=== PATIENT | male | born 1990 | race American Indian/Alaskan Native ===

== ENCOUNTER 2018-02-22 23:32 | Emergency (ER) | payer SELFPAY ==
[2018-02-23 00:56] LABS: Basophils % (Auto) 0.6 % (0.0-1.8); Eosinophils # (Auto) 0.3 K/mm3 (0.0-0.4); Hematocrit 49.7 % (35.5-45.6); Hemoglobin 16.4 gm/dl (11.8-15.2); Lymphocytes # (Auto) 2.2 K/mm3 (1.2-5.4); Lymphocytes % (Auto) 28.3 % (13.4-35.0); Mean Corpuscular HGB Conc 33 % (32-34); Mean Corpuscular Hemoglobin 30 pg (28-32); Mean Corpuscular Volume 90 fl (84-94); Monocytes # (Auto) 0.9 K/mm3 (0.0-0.8); Monocytes % (Auto) 12.1 % (0.0-7.3); Platelet Count 214 K/mm3 (140-440); Red Blood Count 5.51 M/mm3 (3.65-5.03); Red Cell Distribution Width 13.5 % (13.2-15.2)
[2018-02-23 01:17] LABS: Bilirubin,Urine NEG (Negative); Blood,Urine NEG (Negative); Color,Urine Yellow (Yellow); Mucus,Urine FEW /HPF; Protein,Urine <15 mg/dL mg/dL (Negative)
[2018-02-23 01:19] LABS: Albumin 3.9 g/dL (3.9-5); BUN/Creatinine Ratio 14; Blood Urea Nitrogen 15 mg/dL (9-20); Calcium 8.8 mg/dL (8.4-10.2); Hemolysis Index 30
[2018-02-23 01:34] LABS: Alanine Aminotransferase 1070 units/L (7-56)
[2018-02-23 05:23] LABS: Lipase 25 units/L (13-60)
[2018-02-23] MEDS ORDERED: ZOFRAN ODT PO ONE (05:30)
--- NOTE | 2018-02-23 05:36 | Emergency Department Report ---
<CAITLIN SANTOS - Last Filed: 02/23/18 06:33> ED Abdominal Pain HPI - General Chief Complaint: Abdominal Pain Stated Complaint: STOMACH PAIN.TESTICLE PAIN,BURN URINE Time Seen by Provider: 02/23/18 05:00 Source: patient Mode of arrival: Ambulatory Limitations: No Limitations - History of Present Illness Initial Comments: 27-year-old -[place] male with a past medical history of HIV reports is undetected, fatty liver with recent hospital stay at [facility] every comes in today for abdominal pain decreased appetite for the last 2 days left testicular pain with swelling. Admits to nausea and decreased appetite. He also admits to dysuria denies any penile discharge. Patient reports he is not on any antiretrovirals at this time. Patient reports is currently taking no medications he has an allergy to Dilantin, iodine containing products. Reports his pain is 6 out of 10. MD Complaint: abdominal pain -: days(s) (2) Location: diffuse Severity: moderate Severity scale (0 -10): 6 Consistency: constant Improves With: nothing Worsens With: movement - Related Data Previous Rx's Medication Instructions Recorded Last Taken Type Doxycycline [Vibramycin CAP] 100 mg PO Q12HR #30 capsule 02/23/18 Unknown Rx traMADol [Ultram] 50 mg PO Q6HR PRN #10 tablet 02/23/18 Unknown Rx Allergies Allergy/AdvReac Type Severity Reaction Status Date / Time Iodine and Iodide Containing Allergy Hives Verified 02/22/18 23:47 Produc ED Review of Systems ROS: Stated complaint: STOMACH PAIN.TESTICLE PAIN,BURN URINE Other details as noted in HPI Constitutional: denies: chills, fever Eyes: denies: eye pain, eye discharge, vision change ENT: denies: ear pain, throat pain Respiratory: denies: cough, shortness of breath, wheezing Cardiovascular: denies: chest pain, palpitations Gastrointestinal: abdominal pain Genitourinary: dysuria, testicular pain. denies: discharge Musculoskeletal: denies: back pain, joint swelling, arthralgia Skin: denies: rash, lesions Neurological: denies: headache, weakness, paresthesias Psychiatric: denies: anxiety, depression Hematological/Lymphatic: denies: easy bleeding, easy bruising ED Past Medical Hx - Past Medical History Hx Hypertension: No Hx CVA: No Hx Heart Attack/AMI: No Hx Congestive Heart Failure: No Hx Diabetes: No Hx Deep Vein Thrombosis: No Hx Pulmonary Embolism: No Hx GERD: No Hx Liver Disease: Yes (Fatty liver) Hx Renal Disease: No Hx of Cancer: No Hx Sickle Cell Disease: No Hx Arthritis: No Hx Headaches / Migraines: No Hx Seizures: No Hx Kidney Stones: No Hx Psychiatric Treatment: No Hx Asthma: Yes Hx COPD: No Hx Tuberculosis: No Hx Dementia: No Hx HIV: Yes - Surgical History Past Surgical History?: No - Social History Smoking Status: Current Every Day Smoker Substance Use Type: Alcohol - Medications Home Medications: Home Medications Medication Instructions Recorded Confirmed Last Taken Type Doxycycline [Vibramycin CAP] 100 mg PO Q12HR #30 capsule 02/23/18 Unknown Rx traMADol [Ultram] 50 mg PO Q6HR PRN #10 tablet 02/23/18 Unknown Rx ED Physical Exam - General Limitations: No Limitations General appearance: alert, in no apparent distress - Head Head exam: Present: atraumatic, normocephalic - Eye Eye exam: Present: normal appearance - ENT ENT exam: Present: mucous membranes moist - Neck Neck exam: Present: normal inspection - Respiratory Respiratory exam: Present: normal lung sounds bilaterally. Absent: respiratory distress - Cardiovascular Cardiovascular Exam: Present: regular rate, normal rhythm. Absent: systolic murmur, diastolic murmur, rubs, gallop - GI/Abdominal GI/Abdominal exam: Present: soft, normal bowel sounds - Rectal Rectal exam: Present: deferred - exam: Present: testicular tenderness, scrotal swelling, circumcision - Extremities Exam Extremities exam: Present: normal inspection - Back Exam Back exam: Present: normal inspection - Neurological Exam Neurological exam: Present: alert, oriented X3 - Psychiatric Psychiatric exam: Present: normal affect, normal mood - Skin Skin exam: Present: warm, dry, intact, normal color. Absent: rash ED Course Vital Signs 02/22/18 02/23/18 23:37 07:19 Temperature 97.9 F 98.7 F Pulse Rate 84 88 Respiratory 18 17 Rate Blood Pressure 124/79 Blood Pressure 124/79 116/74 [Right] O2 Sat by Pulse 98 99 Oximetry ED Medical Decision Making - Lab Data Result diagrams: 02/23/18 00:39 02/23/18 00:39 - Radiology Data Radiology results: report reviewed, image reviewed IMPRESSION: Left epididymitis is suggested. No findings of torsion, orchitis or abscess formation - Medical Decision Making Patient's been evaluated with his provider as well as Dr. Van. Evaluated patient's labs show that he has elevated liver enzymes. Discussed the patient we will do a CT of the abdomen pelvic and ultrasound of his testicles. Studies come back negative for testicular torsion will treat patient for epididymitis. CT scan comes back stable. We will refer patient to lining feller encourage patient to stop smoking and stop drinking alcohol. For him to follow up closely with her doctor. Critical care attestation.: If time is entered above; I have spent that time in minutes in the direct care of this critically ill patient, excluding procedure time. ED Disposition Clinical Impression: Epididymitis, left Disposition: - TO HOME OR SELFCARE Condition: Stable Instructions: Epididymitis (ED) Additional Instructions: Return any acute change or worsening. follow up with listed physicians. Prescriptions: Doxycycline [Vibramycin CAP] 100 mg PO Q12HR #30 capsule traMADol [Ultram] 50 mg PO Q6HR PRN #10 tablet PRN Reason: Pain Referrals: usual, [facility] [Other] - 3-5 Days [facility] [Provider Group] - 3-5 Days ELMER MARC MD [Primary Care Provider] - 3-5 Days Forms: STI Treatment and Prevention <BERLIN TURNER - Last Filed: 02/23/18 07:46> ED Course - Reevaluation(s) Reevaluation #1: I was asked to check CT and discharge patient if negative. Patient has very been staffed by Dr. Dong Van. CT is negative 02/23/18 07:42 ED Medical Decision Making - Lab Data Result diagrams: 02/23/18 00:39 02/23/18 00:39 ED Disposition Is pt being admited?: No Does the pt Need Aspirin: No Time of Disposition: 07:44
--- NOTE | 2018-02-23 06:27 | Ultrasound Report ---
FINAL REPORT EXAM: US TESTICULAR DOPPLER COMP HISTORY: left testicular pain with swelling COMPARISONS: None FINDINGS: Grayscale, color and spectral Doppler ultrasound evaluation of the testicles The right testicle measures 4.2 x 1.9 x 2.8 cm and demonstrates normal echotexture and color and spectral Doppler evaluation. The epididymis is within normal limits. No intra or extratesticular mass. The left testicle measures 4.4 x 2.2 x 2.6 cm and demonstrates normal echotexture and color and spectral Doppler evaluation. The left epididymis is asymmetrically larger and diffusely heterogeneous in echotexture compared to the right. Trace left hydrocele. No intra or extratesticular mass. No right or left varicocele identified. IMPRESSION: Left epididymitis is suggested. No findings of torsion, orchitis or abscess formation.
[2018-02-23] MEDS ORDERED: ROCEPHIN IM ONE (06:36)
[2018-02-23] MEDS ORDERED: XYLOCAINE 1% MPF 5 mL INFILTRATI ONE (06:36)
[2018-02-23] MEDS ORDERED: ZITHROMAX PO ONE (06:36)
[2018-02-23] MEDS ORDERED: MOTRIN PO ONE (06:37)
--- NOTE | 2018-02-23 07:24 | Cat Scan Report ---
FINAL REPORT EXAM: CT ABDOMEN PELVIS WO CON HISTORY: abd pain and elevated LFTs TECHNIQUE: CT images obtained through the Abdomen and Pelvis without contrast. Transaxial,coronal and sagittal reformats are provided. PRIORS: None. FINDINGS: Imaged intrathoracic contents are unremarkable. Kidneys are normal in size, axis and position. No hydronephrosis or nephrolithiasis. The ureters are normal in course and caliber. No stones are seen within the urinary bladder. The liver, gallbladder, pancreas, spleen, and adrenal glands demonstrate an unremarkable noncontrast appearance. Hollow enteric organs are normal in course and caliber. Appendix is normal. No intra-abdominal free air/fluid or lymphadenopathy. Aorta is normal in course and caliber. Superficial soft tissues are unremarkable. No acute or aggressive appearing skeletal findings. IMPRESSION: No acute findings in the abdomen or pelvis.
[2018-02-23 08:29] VITALS: BP 119/78
== END 2018-02-23 08:20 | disposition home or self-care (01) ==
LOC: ED 23:32
DX: N45.1 Epididymitis (principal); F17.200 Nicotine dependence, unspecified, uncomplicated; Z88.8 Allergy status to other drugs, medicaments and biological substances
CPT/HCPCS: 36415; 74176; 80053; 81001; 82150; 83690; 85025; 87086; 93975; 96372; 99284; J0696; Q0162

== ENCOUNTER 2018-03-15 00:47 | Emergency (ER) | payer SELFPAY ==
[2018-03-15] MEDS ORDERED: TYLENOL ONE (01:40)
[2018-03-15 01:44] VITALS: BP 113/59
[2018-03-15] MEDS ORDERED: TYLENOL PO ONE (01:45)
--- NOTE | 2018-03-15 02:45 | XRay Report ---
FINAL REPORT PROCEDURE: XR CHEST ROUTINE 2V TECHNIQUE: PA and lateral chest radiographs were obtained. CPT 04063 HISTORY: TRE COMPARISON: No prior studies are available for comparison. FINDINGS: Heart: Normal. Mediastinum/Vessels: Normal. Lungs/Pleural space: Normal. Bony thorax: No acute osseous abnormality. Other: IMPRESSION: Normal examination.
== END 2018-03-15 05:36 | disposition left against medical advice (07) ==
LOC: ED 00:47
DX: M54.9 Dorsalgia, unspecified (principal); Z53.21 Procedure and treatment not carried out due to patient leaving prior to being seen by health care provider
CPT/HCPCS: 71046; 93005; 93010

== ENCOUNTER 2018-07-01 15:57 | Emergency (ER) | payer SELFPAY ==
--- NOTE | 2018-07-01 20:49 | Emergency Department Report ---
ED Male HPI - General Chief complaint: Urogenital-Male Stated complaint: BURNING WHEN URINATION/TESTICLE PAIN Time Seen by Provider: 07/01/18 20:09 Source: patient Mode of arrival: Ambulatory Limitations: No Limitations - History of Present Illness Initial comments: Patient c/o Left testicular pain x 1 week. Complaint: testicle pain -: Gradual Location: left testicle Radiation: none Severity: moderate Severity scale (0 -10): 6 Quality: aching Consistency: constant Improves with: none Worsens with: none dysuria - Related Data Sexually active: Yes Previous Rx's Medication Instructions Recorded Last Taken Type Doxycycline [Vibramycin CAP] 100 mg PO Q12HR #30 capsule 02/23/18 Unknown Rx Sulfamethoxazole/Trimethoprim 1 each PO BID #30 tablet 02/23/18 Unknown Rx [Bactrim Ds Tablet] traMADol [Ultram] 50 mg PO Q6HR PRN #10 tablet 02/23/18 Unknown Rx Doxycycline Hyclate [Doxycycline 100 mg PO Q12HR #20 tab 07/01/18 Unknown Rx Hyclate TAB] Ibuprofen [Motrin] 800 mg PO Q8HR PRN #30 tablet 07/01/18 Unknown Rx Ondansetron [Zofran Odt] 4 mg PO Q8HR PRN #15 tab.rapdis 07/01/18 Unknown Rx levoFLOXacin [Levaquin] 750 mg PO QDAY #10 tablet 07/01/18 Unknown Rx Allergies Allergy/AdvReac Type Severity Reaction Status Date / Time Iodine and Iodide Containing Allergy Hives Verified 07/01/18 16:12 Produc ED Review of Systems ROS: Stated complaint: BURNING WHEN URINATION/TESTICLE PAIN Other details as noted in HPI Comment: All other systems reviewed and negative Constitutional: denies: chills, fever Eyes: denies: eye pain ENT: denies: ear pain Respiratory: denies: cough, shortness of breath Cardiovascular: denies: chest pain, palpitations Endocrine: no symptoms reported Gastrointestinal: denies: abdominal pain, nausea, vomiting, diarrhea Genitourinary: urgency, dysuria, frequency Musculoskeletal: denies: back pain Skin: denies: rash, lesions Neurological: denies: headache, weakness Psychiatric: denies: anxiety, depression Hematological/Lymphatic: denies: easy bleeding, easy bruising ED Past Medical Hx - Past Medical History Hx Hypertension: No Hx CVA: No Hx Heart Attack/AMI: No Hx Congestive Heart Failure: No Hx Diabetes: No Hx Deep Vein Thrombosis: No Hx Pulmonary Embolism: No Hx GERD: No Hx Liver Disease: Yes (Fatty liver) Hx Renal Disease: No Hx Sickle Cell Disease: No Hx Arthritis: No Hx Headaches / Migraines: No Hx Seizures: No Hx Kidney Stones: No Hx Psychiatric Treatment: No Hx Asthma: Yes Hx COPD: No Hx Tuberculosis: No Hx Dementia: No Hx HIV: Yes - Social History Smoking Status: Never Smoker Substance Use Type: None - Medications Home Medications: Home Medications Medication Instructions Recorded Confirmed Last Taken Type Doxycycline [Vibramycin CAP] 100 mg PO Q12HR #30 capsule 02/23/18 Unknown Rx Sulfamethoxazole/Trimethoprim 1 each PO BID #30 tablet 02/23/18 Unknown Rx [Bactrim Ds Tablet] traMADol [Ultram] 50 mg PO Q6HR PRN #10 tablet 02/23/18 Unknown Rx Doxycycline Hyclate [Doxycycline 100 mg PO Q12HR #20 tab 07/01/18 Unknown Rx Hyclate TAB] Ibuprofen [Motrin] 800 mg PO Q8HR PRN #30 tablet 07/01/18 Unknown Rx Ondansetron [Zofran Odt] 4 mg PO Q8HR PRN #15 tab.rapdis 07/01/18 Unknown Rx levoFLOXacin [Levaquin] 750 mg PO QDAY #10 tablet 07/01/18 Unknown Rx ED Physical Exam - General Limitations: No Limitations General appearance: alert, in no apparent distress - Head Head exam: Present: atraumatic, normocephalic, normal inspection - Eye Eye exam: Present: normal appearance, PERRL, EOMI Pupils: Present: normal accommodation - ENT ENT exam: Present: normal exam, normal orophraynx, mucous membranes moist - Neck Neck exam: Present: normal inspection, full ROM. Absent: tenderness - Respiratory Respiratory exam: Present: normal lung sounds bilaterally. Absent: respiratory distress, wheezes, rales, rhonchi, stridor - Cardiovascular Cardiovascular Exam: Present: regular rate, normal rhythm, normal heart sounds - GI/Abdominal GI/Abdominal exam: Present: soft, normal bowel sounds. Absent: distended, tenderness, guarding, rebound, rigid - Rectal Rectal exam: Present: deferred - exam: Present: normal inspection, testicular tenderness (Left testicle), circumcision, other (Charperone was Ms. Aisha RN.). Absent: urethral discharge, scrotal swelling - Extremities Exam Extremities exam: Present: normal inspection, full ROM, normal capillary refill. Absent: tenderness - Back Exam Back exam: Present: normal inspection, full ROM. Absent: tenderness - Neurological Exam Neurological exam: Present: alert, oriented X3, CN II-XII intact - Psychiatric Psychiatric exam: Present: normal affect, normal mood - Skin Skin exam: Present: warm, dry, intact, normal color. Absent: rash ED Course Vital Signs 07/01/18 07/01/18 16:12 20:17 Temperature 97.6 F Pulse Rate 92 H 74 Respiratory 18 16 Rate Blood Pressure 129/80 Blood Pressure 139/71 [Left] O2 Sat by Pulse 99 96 Oximetry ED Medical Decision Making - Lab Data Result diagrams: 07/01/18 21:09 07/01/18 21:15 - Radiology Data Radiology results: report reviewed, image reviewed - Medical Decision Making UTI. Left sided Epididymitis. Critical care attestation.: If time is entered above; I have spent that time in minutes in the direct care of this critically ill patient, excluding procedure time. ED Disposition Clinical Impression: Acute epididymo-orchitis Disposition: DC-01 TO HOME OR SELFCARE Is pt being admited?: No Does the pt Need Aspirin: No Condition: Stable Instructions: Epididymitis (ED) Additional Instructions: Follow up with your regular doctor tomorrow morning. Return to the ED if your condition worsens. Prescriptions: Doxycycline Hyclate [Doxycycline Hyclate TAB] 100 mg PO Q12HR #20 tab Ibuprofen [Motrin] 800 mg PO Q8HR PRN #30 tablet PRN Reason: Pain, Moderate (4-6) levoFLOXacin [Levaquin] 750 mg PO QDAY #10 tablet Ondansetron [Zofran Odt] 4 mg PO Q8HR PRN #15 tab.rapdis PRN Reason: Nausea And Vomiting Referrals: PRIMARY CARE,MD [Primary Care Provider] - 3-5 Days Forms: STI Treatment and Prevention Time of Disposition: 23:50
[2018-07-01] MEDS ORDERED: ROCEPHIN IM ONE (20:50)
[2018-07-01] MEDS ORDERED: XYLOCAINE 1% MPF 5 mL INFILTRATI ONE (20:50)
[2018-07-01] MEDS ORDERED: ZITHROMAX PO ONE (20:50)
--- NOTE | 2018-07-01 20:57 | Ultrasound Report ---
FINAL REPORT PROCEDURE: US TESTICULAR DOPPLER COMP TECHNIQUE: Real-time -scale and color flow Doppler sonography in multiple planes of the scrotum, testicles, and epididymes was performed. Velocity spectral waveform analysis Doppler imaging of the arterial inflow and venous outflow of the testicles was performed with image documentation. CPT 89347 and 47805 HISTORY: pain in left testicle COMPARISON: 02/23/2018 FINDINGS: RIGHT TESTICLE: Size: 3.7 x 1.7 x 2.8 cm . Doppler flow: Within normal limits. Right epididymis: Normal size and echotexture . Hydrocele: None . LEFT TESTICLE Size: 4.0 x 2.2 x 3.0 cm . Appearance: Normal size and echotexture . Doppler flow: There is slightly increased Doppler signal compared to that of right.. Leftepididymis: Normal size and echotexture . Hydrocele: None . Mild degree left varicocele is identified. IMPRESSION: Slightly increased Doppler signal on the left is suspicious for left epididymo-orchitis. Mild degree left varicocele.
[2018-07-01 21:26] LABS: Basophils # (Auto) 0.1 K/mm3 (0.0-0.1); Basophils % (Auto) 0.9 % (0.0-1.8); Eosinophils # (Auto) 0.5 K/mm3 (0.0-0.4); Eosinophils % (Auto) 4.7 % (0.0-4.3); Hematocrit 42.9 % (35.5-45.6); Hemoglobin 15.3 gm/dl (11.8-15.2); Lymphocytes # (Auto) 1.5 K/mm3 (1.2-5.4); Lymphocytes % (Auto) 14.4 % (13.4-35.0); Mean Corpuscular HGB Conc 36 % (32-34); Mean Corpuscular Hemoglobin 31 pg (28-32); Mean Corpuscular Volume 88 fl (84-94); Monocytes # (Auto) 0.6 K/mm3 (0.0-0.8); Monocytes % (Auto) 6.2 % (0.0-7.3); Platelet Count 212 K/mm3 (140-440); Red Blood Count 4.88 M/mm3 (3.65-5.03); Red Cell Distribution Width 14.8 % (13.2-15.2)
[2018-07-01 21:32] LABS: INR 0.88 (0.87-1.13)
[2018-07-01 21:33] LABS: Partial Thromboplastin Time 31.7 Sec. (24.2-36.6)
[2018-07-01 21:40] LABS: Alanine Aminotransferase 269 units/L (7-56); Albumin 4.3 g/dL (3.9-5); BUN/Creatinine Ratio 6; Blood Urea Nitrogen 9 mg/dL (9-20); Calcium 9.3 mg/dL (8.4-10.2); Hemolysis Index 25
--- NOTE | 2018-07-01 22:27 | Cat Scan Report ---
FINAL REPORT PROCEDURE: CT ABDOMEN PELVIS WO CON TECHNIQUE: Computerized axial tomography of the abdomen and pelvis was performed without intravenous contrast. This study is performed without intravascular contrast material and its sensitivity for abdominal and pelvic pathology, including neoplasms, inflammation, abscess, free fluid, thrombosis, arterial dissection and infarction, is reduced compared with a contrast enhanced study. HISTORY: Lower abdominal pain; C/O TESTICULAR PAIN. COMPARISON: 02/23/2018 FINDINGS: Liver, spleen, pancreas and adrenal glands are within normal limits. Bilateral kidneys demonstrate normal density without calculi or hydronephrosis. Aorta is of normal caliber. There is no free fluid or free air. Gallbladder is contracted. Small bowel loops are within normal limits. Moderate degree residual stool is noted. Appendix is normal. Vertebral height is normal. IMPRESSION: No acute intra-abdominal or pelvic pathology as visualized on this noncontrast study Moderate degree residual stool.
[2018-07-01 23:47] LABS: Bacteria,Urine 1+ /HPF (Negative); Bilirubin,Urine NEG (Negative); Blood,Urine SM (Negative); Calcium Oxalate Crystals,Urine 2+; Color,Urine Yellow (Yellow); Protein,Urine <15 mg/dL mg/dL (Negative); Urobilinogen,Urine < 2.0 mg/dL (<2.0); WBC,Urine < 1.0 /HPF (0.0-6.0)
[2018-07-01] MEDS ORDERED: LEVAQUIN PO ONE (23:50)
[2018-07-02 00:20] VITALS: BP 117/84
== END 2018-07-02 00:20 | disposition home or self-care (01) ==
LOC: ED 15:57
DX: N45.3 Epididymo-orchitis (principal); J45.909 Unspecified asthma, uncomplicated; K76.9 Liver disease, unspecified; Z91.041 Radiographic dye allergy status; Z91.09 Other allergy status, other than to drugs and biological substances
CPT/HCPCS: 36415; 74176; 80053; 81001; 85025; 85610; 85730; 87086; 93975; 96372; 99284; J0696

== ENCOUNTER 2018-08-25 21:38 | Emergency (ER) | payer SELFPAY ==
[2018-08-25 22:28] VITALS: BP 140/92
[2018-08-25 23:08] LABS: Basophils # (Auto) 0.1 K/mm3 (0.0-0.1); Basophils % (Auto) 0.8 % (0.0-1.8); Eosinophils # (Auto) 0.3 K/mm3 (0.0-0.4); Eosinophils % (Auto) 3.4 % (0.0-4.3); Hematocrit 46.8 % (35.5-45.6); Lymphocytes # (Auto) 1.9 K/mm3 (1.2-5.4); Lymphocytes % (Auto) 20.6 % (13.4-35.0); Mean Corpuscular HGB Conc 34 % (32-34); Mean Corpuscular Hemoglobin 31 pg (28-32); Mean Corpuscular Volume 91 fl (84-94); Monocytes # (Auto) 0.6 K/mm3 (0.0-0.8); Monocytes % (Auto) 6.9 % (0.0-7.3); Platelet Count 223 K/mm3 (140-440); Red Blood Count 5.14 M/mm3 (3.65-5.03); Red Cell Distribution Width 13.9 % (13.2-15.2)
[2018-08-25 23:19] LABS: BUN/Creatinine Ratio 10; Blood Urea Nitrogen 12 mg/dL (9-20); Calcium 9.3 mg/dL (8.4-10.2); Hemolysis Index 10
[2018-08-25 23:43] LABS: Bilirubin,Urine NEG (Negative); Blood,Urine NEG (Negative); Color,Urine Straw (Yellow); Protein,Urine <15 mg/dL mg/dL (Negative); RBC,Urine < 1.0 /HPF (0.0-6.0); Urobilinogen,Urine < 2.0 mg/dL (<2.0)
[2018-08-25 23:44] LABS: WBC,Urine < 1.0 /HPF (0.0-6.0)
[2018-08-25 23:54] LABS: Amphetamine Screen,Urine PRESUMPTIVE NEGATIVE; Benzodiazepines Screen,Urine PRESUMPTIVE NEGATIVE; Cannabinoid Screen,Urine PRESUMPTIVE NEGATIVE; Methadone Screen,Urine PRESUMPTIVE NEGATIVE; Opiate Screen,Urine PRESUMPTIVE NEGATIVE
[2018-08-26 00:28] LABS: Cocaine Screen,Urine PRESUMPTIVE POSITIVE
== END 2018-08-25 23:40 | disposition left against medical advice (07) ==
LOC: ED 21:38
DX: R42 Dizziness and giddiness (principal); R30.0 Dysuria; Z79.899 Other long term (current) drug therapy; Z53.21 Procedure and treatment not carried out due to patient leaving prior to being seen by health care provider
CPT/HCPCS: 36415; 80048; 80307; 81001; 85025; G0480; 80320; 93005; 93010

== ENCOUNTER 2019-01-24 15:09 | Emergency (ER) | payer OTHER ==
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
[2019-01-24 16:37] LABS: Hematocrit 47.2 % (35.5-45.6); Mean Corpuscular HGB Conc 34 % (32-34); Mean Corpuscular Volume 91 fl (84-94); Platelet Count 339 K/mm3 (140-440); Red Cell Distribution Width 13.6 % (13.2-15.2)
[2019-01-24 16:52] LABS: Alanine Aminotransferase 22 units/L (7-56); Albumin 4.5 g/dL (3.9-5); BUN/Creatinine Ratio 7; Blood Urea Nitrogen 8 mg/dL (9-20); Calcium 9.6 mg/dL (8.4-10.2); Hemolysis Index 14
--- NOTE | 2019-01-24 17:16 | XRay Report ---
PROCEDURE: XR CHEST ROUTINE 2V TECHNIQUE: 2 view chest HISTORY: CHEST PAIN COMPARISONS: FINDINGS: Cardiac and mediastinal contours are unremarkable. No focal pulmonary infiltrate identified. No pleur al fluid collections seen. Pulmonary vasculature is unremarkable. IMPRESSION: No acute abnormality identified in the chest. This document is electronically signed by Dre Neves MD., January 24 2019 05:13:43 PM ET
--- NOTE | 2019-01-24 20:15 | Emergency Department Report ---
ED Chest Pain HPI - General Chief Complaint: Chest Pain Stated Complaint: CHEST/NECK PAIN Time Seen by Provider: 01/24/19 15:59 Source: patient Mode of arrival: Ambulatory Limitations: No Limitations - History of Present Illness Initial Comments: This is a 28-year-old -[place] male who presents with chest pain status post questionable ingestion last night states he went to a green party and drinking and woke up feeling funny today pain is 3/10 is exacerbated by deep breathing nausea vomiting no dizziness no diaphoresis no back pain patient and have cardiac history does have a history of being HIV positive advised that here is for treatment regimen patient is tolerating by mouth intake patient denies substance a normal basis been no relieving or exacerbating factors patient is tolerating by mouth intake at this time MD Complaint: chest pain Onset/Timin -: days(s) Pain Location: left chest Pain Radiation: none Severity: mild, moderate Severity scale (0 -10): 7 Quality: aching Consistency: intermittent Improves With: rest Worsens With: inspiration, movement re: denies: nausea, vomting, diaphoresis, dyspnea, sense of impending doom Other Symptoms: denies: cough, fever, syncope, rash, acid taste in mouth, leg swelling, palpitations, burping Treatments Prior to Arrival: none - Related Data Previous Rx's Medication Instructions Recorded Last Taken Type Doxycycline [Vibramycin CAP] 100 mg PO Q12HR #30 capsule 02/23/18 Unknown Rx Sulfamethoxazole/Trimethoprim 1 each PO BID #30 tablet 02/23/18 Unknown Rx [Bactrim Ds Tablet] traMADol [Ultram] 50 mg PO Q6HR PRN #10 tablet 02/23/18 Unknown Rx Doxycycline Hyclate [Doxycycline 100 mg PO Q12HR #20 tab 07/01/18 Unknown Rx Hyclate TAB] Ibuprofen [Motrin] 800 mg PO Q8HR PRN #30 tablet 07/01/18 Unknown Rx Ondansetron [Zofran Odt] 4 mg PO Q8HR PRN #15 tab.rapdis 07/01/18 Unknown Rx levoFLOXacin [Levaquin] 750 mg PO QDAY #10 tablet 07/01/18 Unknown Rx levoFLOXacin [Levaquin TAB] 500 mg PO QDAY 7 Days #7 tablet 10/30/18 Unknown Rx predniSONE [Deltasone] 3 tab PO QDAY 4 Days #12 tab 10/30/18 Unknown Rx Ibuprofen 800 mg PO TID PRN #30 tablet 01/24/19 Unknown Rx Allergies Allergy/AdvReac Type Severity Reaction Status Date / Time Iodine and Iodide Containing Allergy Hives Verified 07/01/18 16:12 Produc Heart Score - HEART Score History: Slightly suspicious EKG: Normal Age: < 45 Risk factors: No known risk factors Troponin: < normal limit HEART Score: 0 ED Review of Systems ROS: Stated complaint: CHEST/NECK PAIN Other details as noted in HPI Constitutional: denies: chills, fever Eyes: denies: eye pain, eye discharge, vision change ENT: denies: ear pain, throat pain Respiratory: denies: cough, shortness of breath, wheezing Cardiovascular: chest pain. denies: palpitations Endocrine: no symptoms reported Gastrointestinal: denies: abdominal pain, nausea, diarrhea Genitourinary: denies: urgency, dysuria Musculoskeletal: denies: back pain, joint swelling, arthralgia, myalgia Skin: denies: rash, lesions Neurological: denies: headache, weakness, paresthesias Psychiatric: denies: anxiety, depression Hematological/Lymphatic: denies: easy bleeding, easy bruising ED Past Medical Hx - Past Medical History Hx Hypertension: No Hx CVA: No Hx Heart Attack/AMI: No Hx Congestive Heart Failure: No Hx Diabetes: No Hx Deep Vein Thrombosis: No Hx Pulmonary Embolism: No Hx GERD: No Hx Liver Disease: Yes (Fatty liver) Hx Renal Disease: No Hx Sickle Cell Disease: No Hx Arthritis: No Hx Headaches / Migraines: No Hx Seizures: No Hx Kidney Stones: No Hx Psychiatric Treatment: No Hx Asthma: Yes Hx COPD: No Hx Tuberculosis: No Hx Dementia: No Hx HIV: Yes - Surgical History Past Surgical History?: No - Social History Smoking Status: Never Smoker Substance Use Type: Marijuana - Medications Home Medications: Home Medications Medication Instructions Recorded Confirmed Last Taken Type Doxycycline [Vibramycin CAP] 100 mg PO Q12HR #30 capsule 02/23/18 Unknown Rx Sulfamethoxazole/Trimethoprim 1 each PO BID #30 tablet 02/23/18 Unknown Rx [Bactrim Ds Tablet] traMADol [Ultram] 50 mg PO Q6HR PRN #10 tablet 02/23/18 Unknown Rx Doxycycline Hyclate [Doxycycline 100 mg PO Q12HR #20 tab 07/01/18 Unknown Rx Hyclate TAB] Ibuprofen [Motrin] 800 mg PO Q8HR PRN #30 tablet 07/01/18 Unknown Rx Ondansetron [Zofran Odt] 4 mg PO Q8HR PRN #15 tab.rapdis 07/01/18 Unknown Rx levoFLOXacin [Levaquin] 750 mg PO QDAY #10 tablet 07/01/18 Unknown Rx levoFLOXacin [Levaquin TAB] 500 mg PO QDAY 7 Days #7 tablet 10/30/18 Unknown Rx predniSONE [Deltasone] 3 tab PO QDAY 4 Days #12 tab 10/30/18 Unknown Rx Ibuprofen 800 mg PO TID PRN #30 tablet 01/24/19 Unknown Rx ED Physical Exam - General Limitations: No Limitations General appearance: alert, in no apparent distress - Head Head exam: Present: atraumatic, normocephalic - Eye Eye exam: Present: normal appearance, PERRL, EOMI Pupils: Present: normal accommodation - ENT ENT exam: Present: normal orophraynx, mucous membranes moist, TM's normal bilaterally, normal external ear exam - Neck Neck exam: Present: normal inspection, tenderness, full ROM. Absent: meningismus, lymphadenopathy, thyromegaly - Respiratory Respiratory exam: Present: normal lung sounds bilaterally, chest wall tenderness (left lateral ). Absent: respiratory distress, wheezes, stridor, prolonged expiratory - Cardiovascular Cardiovascular Exam: Present: regular rate, normal rhythm, normal heart sounds. Absent: systolic murmur, diastolic murmur, rubs, gallop - GI/Abdominal GI/Abdominal exam: Present: soft, normal bowel sounds. Absent: distended, tenderness, guarding, rebound, rigid, mass, bruit, hernia - Rectal Rectal exam: Present: deferred - Extremities Exam Extremities exam: Present: normal inspection, full ROM, normal capillary refill. Absent: tenderness, pedal edema, joint swelling, calf tenderness - Back Exam Back exam: Present: normal inspection, full ROM. Absent: tenderness, CVA tenderness (R), CVA tenderness (L), muscle spasm, paraspinal tenderness, vertebral tenderness, rash noted - Neurological Exam Neurological exam: Present: alert, oriented X3, CN II-XII intact, normal gait, reflexes normal. Absent: motor sensory deficit - Psychiatric Psychiatric exam: Present: normal affect, normal mood - Skin Skin exam: Present: warm, dry, intact, normal color. Absent: rash ED Course Vital Signs 01/24/19 16:00 Temperature 98.3 F Pulse Rate 97 H Respiratory 16 Rate Blood Pressure 142/87 O2 Sat by Pulse 98 Oximetry URBAN score - Urban Score Age > 65: (0) No Aspirin use within the Past 7 Days: (0) No 3 or more CAD Risk Factors: (0) No 2 or more Angina events in past 24 hrs: (0) No Known CAD with more than 50% Stenosis: (0) No Elevated Cardiac Markers: (0) No ST Deviation Greater than 0.5mm: (0) No URBAN Score: 0 ED Medical Decision Making - Lab Data Result diagrams: 01/24/19 16:22 01/24/19 16:22 Labs 01/24/19 01/24/19 01/24/19 16:22 16:22 21:00 WBC 11.6 H RBC 5.20 H Hgb 16.0 H Hct 47.2 H MCV 91 MCH 31 MCHC 34 RDW 13.6 Plt Count 339 Sodium 137 Potassium 4.0 Chloride 97.6 L Carbon Dioxide 28 Anion Gap 15 BUN 8 L Creatinine 1.1 Estimated GFR > 60 BUN/Creatinine Ratio 7 Glucose 83 Calcium 9.6 Total Bilirubin 0.70 AST 27 ALT 22 Alkaline Phosphatase 75 Troponin T < 0.010 Total Protein 8.3 H Albumin 4.5 Albumin/Globulin Ratio 1.2 Urine Color Yellow Urine Turbidity Clear Urine pH 6.0 Ur Specific [place] 1.005 Urine Protein <15 mg/dl Urine Glucose (UA) Neg Urine Ketones Neg Urine Blood Neg Urine Nitrite Neg Urine Bilirubin Neg Urine Urobilinogen 2.0 Ur Leukocyte Esterase Neg Urine WBC (Auto) 0.0 Urine RBC (Auto) < 1.0 Urine Opiates Screen Urine Methadone Screen Ur Barbiturates Screen Ur Phencyclidine Scrn Ur Amphetamines Screen U Benzodiazepines Scrn Urine Cocaine Screen U Marijuana (THC) Screen 01/24/19 21:00 WBC RBC Hgb Hct MCV MCH MCHC RDW Plt Count Sodium Potassium Chloride Carbon Dioxide Anion Gap BUN Creatinine Estimated GFR BUN/Creatinine Ratio Glucose Calcium Total Bilirubin AST ALT Alkaline Phosphatase Troponin T Total Protein Albumin Albumin/Globulin Ratio Urine Color Urine Turbidity Urine pH Ur Specific [place] Urine Protein Urine Glucose (UA) Urine Ketones Urine Blood Urine Nitrite Urine Bilirubin Urine Urobilinogen Ur Leukocyte Esterase Urine WBC (Auto) Urine RBC (Auto) Urine Opiates Screen Presumptive negative Urine Methadone Screen Presumptive negative Ur Barbiturates Screen Presumptive negative Ur Phencyclidine Scrn Presumptive negative Ur Amphetamines Screen Presumptive negative U Benzodiazepines Scrn Presumptive negative Urine Cocaine Screen Presumptive positive U Marijuana (THC) Screen Presumptive negative - EKG Data EKG shows normal: sinus rhythm, axis, intervals, QRS complexes, ST-T waves Rate: normal - EKG Data Interpretation: normal EKG (ekg interp by ed attending nsr no st elevation no ectopy ) - Radiology Data Radiology results: report reviewed, image reviewed Ordering Physician: TJ DAVIDSON Date of Service: 01/24/19 Procedure(s): XR chest routine 2V Accession Number(s): [id number] cc: TJ DAVIDSON Fluoro Time In Minutes: PROCEDURE: XR CHEST ROUTINE 2V TECHNIQUE: 2 view chest HISTORY: CHEST PAIN COMPARISONS: FINDINGS: Cardiac and mediastinal contours are unremarkable. No focal pulmonary infiltrate identified. No pleural fluid collections seen. Pulmonary vasculature is unremarkable. IMPRESSION: No acute abnormality identified in the chest. This document is electronically signed by Dre Rivera MD., January 24 2019 05:13:43 PM ET Transcribed By: DEBBY Dictated By: MAIRA RIVERA MD Electronically Authenticated By: MAIRA RIVERA MD Signed Date/Time: 01/24/19 9736 - Medical Decision Making SYMPTOMS improved EKG normal sinus rhythm chest x-ray is clear labs are normal patient tolerated by mouth intake without nausea vomiting at this time plan DC home when necessary ibuprofen patient will continue to hydrate as directed and follow-up with PCP in 2-3 days patient verbalizes agreement and understanding of discharge plan patient DC to home in stable condition at this time Critical care attestation.: If time is entered above; I have spent that time in minutes in the direct care of this critically ill patient, excluding procedure time. ED Disposition Clinical Impression: Chest pain Qualifiers: Chest pain type: unspecified Qualified Code(s): R07.9 - Chest pain, unspecified Disposition: DC-01 TO HOME OR SELFCARE Is pt being admited?: No Does the pt Need Aspirin: No Condition: Stable Instructions: Chest Pain (ED) Prescriptions: Ibuprofen 800 mg PO TID PRN #30 tablet PRN Reason: pain Referrals: [facility] MD ADELAIDA [Primary Care Provider] - 3-5 Days Forms: Work/School Release Form(ED) Time of Disposition: 21:42
[2019-01-24 21:17] LABS: Bilirubin,Urine NEG (Negative); Blood,Urine NEG (Negative); Color,Urine Yellow (Yellow); Protein,Urine <15 mg/dL mg/dL (Negative); RBC,Urine < 1.0 /HPF (0.0-6.0)
[2019-01-24 21:26] LABS: Amphetamine Screen,Urine PRESUMPTIVE NEGATIVE; Benzodiazepines Screen,Urine PRESUMPTIVE NEGATIVE; Cannabinoid Screen,Urine PRESUMPTIVE NEGATIVE; Methadone Screen,Urine PRESUMPTIVE NEGATIVE; Opiate Screen,Urine PRESUMPTIVE NEGATIVE
[2019-01-24 21:38] LABS: Cocaine Screen,Urine PRESUMPTIVE POSITIVE
[2019-01-24 21:53] VITALS: BP 122/74
== END 2019-01-24 21:52 | disposition home or self-care (01) ==
LOC: ED 15:09
DX: R07.89 Other chest pain (principal); J45.909 Unspecified asthma, uncomplicated; Z21 Asymptomatic human immunodeficiency virus [HIV] infection status; Z91.041 Radiographic dye allergy status
CPT/HCPCS: 36415; 71046; 80053; 80307; 81001; 84484; 85027; 93005; 93010; 99284

== ENCOUNTER 2019-03-16 07:49 | Emergency (ER) | payer SELFPAY ==
[2019-03-16 08:38] VITALS: BP 135/89
[2019-03-16] MEDS ORDERED: TORADOL IV ONE (10:01)
[2019-03-16] MEDS ORDERED: NACL 0.9% 1000 ML 1,000 ML IV ONE (10:01)
--- NOTE | 2019-03-16 10:01 | Emergency Department Report ---
ED General Adult HPI - General Chief complaint: Dyspnea/Respdistress Stated complaint: BACK PAIN/SOB Source: patient Mode of arrival: Ambulatory Limitations: No Limitations - History of Present Illness Initial comments: This is a 28-year-old -Citizen Of [place] male who presents with shortness of breath, neck pain, and back pain started yesterday. This history of asthma and HIV. Patient is also complaining of some abdominal pain with nausea and diarrhea. He reports chills. Patient states his friend had a cough a few days ago which she think cause sleepiness. He reports going to the restroom while here and felt some dysuria and noticed here and dark. Patient states he is taken daily maintenance medication. He has not taken anything for symptom relief. Onset/Timin -: days(s) Location: neck, back, abdomen Radiation: non-radiation Severity scale (0 -10): 10 Quality: aching Consistency: constant Improves with: none Worsens with: none Associated Symptoms: nausea/vomiting. denies: confusion, chest pain, cough, di aphoresis, fever/chills, headaches, loss of appetite, malaise, rash, seizure, shortness of breath, syncope, weakness Treatments Prior to Arrival: none - Related Data Previous Rx's Medication Instructions Recorded Last Taken Type DOXYCYCLINE Hyclate [Vibramycin 100 mg PO Q12HR #30 capsule 02/23/18 Unknown Rx CAP] Sulfamethoxazole/Trimethoprim 1 each PO BID #30 tablet 02/23/18 Unknown Rx [Bactrim Ds Tablet] traMADol [Ultram] 50 mg PO Q6HR PRN #10 tablet 02/23/18 Unknown Rx Doxycycline Hyclate [Doxycycline 100 mg PO Q12HR #20 tab 07/01/18 Unknown Rx Hyclate TAB] Ibuprofen [Motrin] 800 mg PO Q8HR PRN #30 tablet 07/01/18 Unknown Rx Ondansetron [Zofran Odt] 4 mg PO Q8HR PRN #15 tab.rapdis 07/01/18 Unknown Rx levoFLOXacin [Levaquin] 750 mg PO QDAY #10 tablet 07/01/18 Unknown Rx levoFLOXacin [Levaquin TAB] 500 mg PO QDAY 7 Days #7 tablet 10/30/18 Unknown Rx predniSONE [Deltasone] 3 tab PO QDAY 4 Days #12 tab 10/30/18 Unknown Rx Ibuprofen 800 mg PO TID PRN #30 tablet 01/24/19 Unknown Rx Ketorolac [Toradol] 10 mg PO Q6H PRN #12 tablet 03/16/19 Unknown Rx Ondansetron [Zofran Odt] 4 mg PO Q8HR PRN #15 tab.rapdis 03/16/19 Unknown Rx Sulfamethoxazole/Trimethoprim 1 each PO BID #14 tablet 03/16/19 Unknown Rx [Bactrim DS TAB] Tamsulosin HCl [Flomax] 0.4 mg PO DAILY #5 cap.er.24h 03/16/19 Unknown Rx traMADol [Ultram 50 MG tab] 50 mg PO Q6HR PRN #12 tablet 03/16/19 Unknown Rx Allergies Allergy/AdvReac Type Severity Reaction Status Date / Time Iodine and Iodide Containing Allergy Hives Verified 03/16/19 07:50 Produc ED Review of Systems ROS: Stated complaint: BACK PAIN/SOB Other details as noted in HPI Constitutional: chills. denies: fever Respiratory: cough. denies: shortness of breath, wheezing Cardiovascular: denies: chest pain, palpitations Gastrointestinal: abdominal pain, nausea, diarrhea. denies: vomiting Genitourinary: dysuria. denies: urgency Musculoskeletal: back pain. denies: joint swelling, arthralgia Skin: denies: rash, lesions Neurological: denies: headache, weakness, paresthesias Psychiatric: denies: anxiety, depression ED Past Medical Hx - Past Medical History Hx Hypertension: No Hx CVA: No Hx Heart Attack/AMI: No Hx Congestive Heart Failure: No Hx Diabetes: No Hx Deep Vein Thrombosis: No Hx Pulmonary Embolism: No Hx GERD: No Hx Liver Disease: Yes (Fatty liver) Hx Renal Disease: No Hx Sickle Cell Disease: No Hx Arthritis: No Hx Headaches / Migraines: No Hx Seizures: No Hx Kidney Stones: No Hx Psychiatric Treatment: No Hx Asthma: Yes Hx COPD: No Hx Tuberculosis: No Hx Dementia: No Hx HIV: Yes - Surgical History Past Surgical History?: No - Social History Smoking Status: Current Every Day Smoker Substance Use Type: None - Medications Home Medications: Home Medications Medication Instructions Recorded Confirmed Last Taken Type DOXYCYCLINE Hyclate [Vibramycin 100 mg PO Q12HR #30 capsule 02/23/18 Unknown Rx CAP] Sulfamethoxazole/Trimethoprim 1 each PO BID #30 tablet 02/23/18 Unknown Rx [Bactrim Ds Tablet] traMADol [Ultram] 50 mg PO Q6HR PRN #10 tablet 02/23/18 Unknown Rx Doxycycline Hyclate [Doxycycline 100 mg PO Q12HR #20 tab 07/01/18 Unknown Rx Hyclate TAB] Ibuprofen [Motrin] 800 mg PO Q8HR PRN #30 tablet 07/01/18 Unknown Rx Ondansetron [Zofran Odt] 4 mg PO Q8HR PRN #15 tab.rapdis 07/01/18 Unknown Rx levoFLOXacin [Levaquin] 750 mg PO QDAY #10 tablet 07/01/18 Unknown Rx levoFLOXacin [Levaquin TAB] 500 mg PO QDAY 7 Days #7 tablet 10/30/18 Unknown Rx predniSONE [Deltasone] 3 tab PO QDAY 4 Days #12 tab 10/30/18 Unknown Rx Ibuprofen 800 mg PO TID PRN #30 tablet 01/24/19 Unknown Rx Ketorolac [Toradol] 10 mg PO Q6H PRN #12 tablet 03/16/19 Unknown Rx Ondansetron [Zofran Odt] 4 mg PO Q8HR PRN #15 tab.rapdis 03/16/19 Unknown Rx Sulfamethoxazole/Trimethoprim 1 each PO BID #14 tablet 03/16/19 Unknown Rx [Bactrim DS TAB] Tamsulosin HCl [Flomax] 0.4 mg PO DAILY #5 cap.er.24h 03/16/19 Unknown Rx traMADol [Ultram 50 MG tab] 50 mg PO Q6HR PRN #12 tablet 03/16/19 Unknown Rx ED Physical Exam - General Limitations: No Limitations General appearance: alert, in no apparent distress - Neck Neck exam: Present: normal inspection - Respiratory Respiratory exam: Present: normal lung sounds bilaterally. Absent: respiratory distress - Cardiovascular Cardiovascular Exam: Present: regular rate, normal rhythm. Absent: systolic murmur, diastolic murmur, rubs, gallop - GI/Abdominal GI/Abdominal exam: Present: soft, tenderness (left lower quadrant), normal bowel sounds. Absent: distended, guarding, rebound, rigid, organomegaly, mass, bruit, pulsatile mass - Extremities Exam Extremities exam: Present: normal inspection - Back Exam Back exam: Present: full ROM, CVA tenderness (L) - Neurological Exam Neurological exam: Present: alert, oriented X3, normal gait - Psychiatric Psychiatric exam: Present: normal affect, normal mood - Skin Skin exam: Present: warm, dry, intact, normal color. Absent: rash ED Course Vital Signs 03/16/19 08:37 Temperature 99 F Pulse Rate 94 H Respiratory 18 Rate Blood Pressure 135/89 O2 Sat by Pulse 97 Oximetry ED Medical Decision Making - Lab Data Result diagrams: 03/16/19 10:21 03/16/19 10:21 Lab Results 03/16/19 03/16/19 Range/Units 10:21 10:21 WBC 16.5 H (4.5-11.0) K/mm3 RBC 4.92 (3.65-5.03) M/mm3 Hgb 15.2 (11.8-15.2) gm/dl Hct 45.2 (35.5-45.6) % MCV 92 (84-94) fl MCH 31 (28-32) pg MCHC 34 (32-34) % RDW 13.6 (13.2-15.2) % Plt Count 221 (140-440) K/mm3 Lymph % (Auto) 10.9 L (13.4-35.0) % Terry % (Auto) 5.9 (0.0-7.3) % Eos % (Auto) 3.6 (0.0-4.3) % Baso % (Auto) 0.5 (0.0-1.8) % Lymph # 1.8 (1.2-5.4) K/mm3 Terry # 1.0 H (0.0-0.8) K/mm3 Eos # 0.6 H (0.0-0.4) K/mm3 Baso # 0.1 (0.0-0.1) K/mm3 Seg Neutrophils % 79.1 H (40.0-70.0) % Seg Neutrophils # 13.1 H (1.8-7.7) K/mm3 Sodium 137 (137-145) mmol/L Potassium 4.2 (3.6-5.0) mmol/L Chloride 99.7 (98-107) mmol/L Carbon Dioxide 26 (22-30) mmol/L Anion Gap 16 mmol/L BUN 9 (9-20) mg/dL Creatinine 1.3 (0.8-1.5) mg/dL Estimated GFR > 60 ml/min BUN/Creatinine Ratio 7 % Glucose 96 (75-100) mg/dL Calcium 9.0 (8.4-10.2) mg/dL Total Bilirubin 0.50 (0.1-1.2) mg/dL AST 20 (5-40) units/L ALT 16 (7-56) units/L Alkaline Phosphatase 101 (35-129) units/L Total Protein 7.5 (6.3-8.2) g/dL Albumin 3.8 L (3.9-5) g/dL Albumin/Globulin Ratio 1.0 % Lipase 23 (13-60) units/L - Radiology Data Radiology results: report reviewed CT ABDOMEN PELVIS WITHOUT CONTRAST: HISTORY: Left lower quadrant tenderness. COMPARISON: 07/01/18. TECHNIQUE: Helical CT in 1.25mm intervals without IV contrast. Sagittal and coronal reconstructions. FINDINGS: Lung bases: Normal. Liver: Normal. Biliary system: Normal. Pancreas: Normal. Spleen: Normal. Kidneys/ureters/bladder: Both kidneys are normal size, contour and position. A solitary 3 mm calyceal stone is noted at the superior pole of the left kidney. No right renal stones or ureteral stones. No hydronephrosis. Adrenal glands: Normal. Aorta: Normal. Intestines: Within normal limits given no oral contrast was administered. Appendix: Normal. Pelvic viscera: Normal. Ascites: None. Adenopathy: None. Musculoskeletal: Normal. IMPRESSION: No acute inflammatory process is identified. 3 mm left renal stone, nonobstructing. - Medical Decision Making Patient is stable and was examined by me. Vitals stable. Obtained CMP, CBC, UA, and CT of abdomen. Infection is present without signs of sepsis. All other labs unremarkable. IV site obtained. Given normal saline and Toradol IV. CT No acute inflammatory process is identified. 3 mm left renal stone, nonobstr ucting. Start tramadol, Flomax, Toradol, Bactrim DS and Zofran for renal stones. Referral to urology given. Discussed plan with patient and agreed to plan. Discharged home in stable condition. Follow up with PCP in 2-3 days. Critical care attestation.: If time is entered above; I have spent that time in minutes in the direct care of this critically ill patient, excluding procedure time. ED Disposition Clinical Impression: Nephrolithiasis, Renal colic on left side, Dysuria Disposition: - TO HOME OR SELFCARE Is pt being admited?: No Does the pt Need Aspirin: No Condition: Stable Instructions: Kidney Stones (ED), Renal Colic (ED) Additional Instructions: Increase fluid intake to 2 L per day. Change diet to low-protein and a low-sodium diet to prevent reoccurrence. Strain urine to observe for passing stones. Follow-up with primary care doctor in 2-3 days. Follow-up with urology in 1-2 weeks for management of kidney stones. Prescriptions: Sulfamethoxazole/Trimethoprim [Bactrim DS TAB] 1 each PO BID #14 tablet Tamsulosin HCl [Flomax] 0.4 mg PO DAILY #5 cap.er.24h Ketorolac [Toradol] 10 mg PO Q6H PRN #12 tablet PRN Reason: Pain traMADol [Ultram 50 MG tab] 50 mg PO Q6HR PRN #12 tablet PRN Reason: Pain Ondansetron [Zofran Odt] 4 mg PO Q8HR PRN #15 tab.rapdis PRN Reason: Nausea And Vomiting Referrals: [facility] MD ADELAIDA [Primary Care Provider] - 3-5 Days [facility] [Outside] - 3-5 Days [facility] [Outside] - 3-5 Days [facility] [Provider Group] - 3-5 Days Forms: Work/School Release Form(ED) Time of Disposition: 11:45
[2019-03-16 10:41] LABS: Basophils # (Auto) 0.1 K/mm3 (0.0-0.1); Basophils % (Auto) 0.5 % (0.0-1.8); Eosinophils # (Auto) 0.6 K/mm3 (0.0-0.4); Eosinophils % (Auto) 3.6 % (0.0-4.3); Hematocrit 45.2 % (35.5-45.6); Hemoglobin 15.2 gm/dl (11.8-15.2); Lymphocytes # (Auto) 1.8 K/mm3 (1.2-5.4); Lymphocytes % (Auto) 10.9 % (13.4-35.0); Mean Corpuscular HGB Conc 34 % (32-34); Mean Corpuscular Volume 92 fl (84-94); Monocytes % (Auto) 5.9 % (0.0-7.3); Platelet Count 221 K/mm3 (140-440); Red Blood Count 4.92 M/mm3 (3.65-5.03); Red Cell Distribution Width 13.6 % (13.2-15.2)
[2019-03-16 10:54] LABS: Alanine Aminotransferase 16 units/L (7-56); Albumin 3.8 g/dL (3.9-5); BUN/Creatinine Ratio 7; Blood Urea Nitrogen 9 mg/dL (9-20); Hemolysis Index 47
--- NOTE | 2019-03-16 11:21 | Cat Scan Report ---
CT ABDOMEN PELVIS WITHOUT CONTRAST: HISTORY: Left lower quadrant tenderness. COMPARISON: 07/01/18. TECHNIQUE: Helical CT in 1.25mm intervals without IV contrast. Sagittal and coronal reconstructions. FINDINGS: Lung bases: Normal. Liver: Normal. Biliary system: Normal. Pancreas: Normal. Spleen: Normal. Kidneys/ureters/bladder: Both kidneys are normal size, contour and position. A solitary 3 mm calyceal stone is noted at the superior pole of the left kidney. No right renal stones or ureteral stones. No hydronephrosis. Adrenal glands: Normal. Aorta: Normal. Intestines: Within normal limits given no oral contrast was administered. Appendix: Normal. Pelvic viscera: Normal. Ascites: None. Adenopathy: None. Musculoskeletal: Normal. IMPRESSION: No acute inflammatory process is identified. 3 mm left renal stone, nonobstructing.
== END 2019-03-16 12:05 | disposition home or self-care (01) ==
LOC: ED 07:49
DX: N20.0 Calculus of kidney (principal); N23 Unspecified renal colic; J45.909 Unspecified asthma, uncomplicated; F17.200 Nicotine dependence, unspecified, uncomplicated; Z91.040 Latex allergy status
CPT/HCPCS: 36415; 74176; 80053; 83690; 85025; 96361; 96374; 99284; J1885; J7030

== ENCOUNTER 2019-04-25 08:16 | Emergency (ER) | payer SELFPAY ==
[2019-04-25 08:21] VITALS: BP 136/89
[2019-04-25] MEDS ORDERED: DUONEB *Not for PRN Use IH ONE (08:29)
--- NOTE | 2019-04-25 08:34 | Emergency Department Report ---
HPI - General Chief Complaint: Chest Pain Time Seen by Provider: 04/25/19 08:29 - HPI HPI: 28-year-old -[place] male presents to the emergency department with a complaint of some shortness of breath and chest tightness. The patient went out to a club last night and was smoking cigarettes, smoking marijuana, and did some cocaine. He has a history of asthma and HIV. He says he is compliant with HIV medication. He denies any fever, cough, nausea, vomiting. He has not taken anything for his symptoms prior to presentation. ED Past Medical Hx - Past Medical History Previous Medical History?: Yes Hx Hypertension: No Hx CVA: No Hx Heart Attack/AMI: No Hx Congestive Heart Failure: No Hx Diabetes: No Hx Deep Vein Thrombosis: No Hx Pulmonary Embolism: No Hx GERD: No Hx Liver Disease: Yes (Fatty liver) Hx Renal Disease: No Hx Sickle Cell Disease: No Hx Arthritis: No Hx Headaches / Migraines: No Hx Seizures: No Hx Kidney Stones: No Hx Psychiatric Treatment: No Hx Asthma: Yes Hx COPD: No Hx Tuberculosis: No Hx Dementia: No Hx HIV: Yes - Surgical History Past Surgical History?: No - Social History Smoking Status: Current Every Day Smoker Substance Use Type: Alcohol, Marijuana, Prescribed - Medications Home Medications: Home Medications Medication Instructions Recorded Confirmed Last Taken Type DOXYCYCLINE Hyclate [Vibramycin 100 mg PO Q12HR #30 capsule 02/23/18 Unknown Rx CAP] Sulfamethoxazole/Trimethoprim 1 each PO BID #30 tablet 02/23/18 Unknown Rx [Bactrim Ds Tablet] traMADol [Ultram] 50 mg PO Q6HR PRN #10 tablet 02/23/18 Unknown Rx Doxycycline Hyclate [Doxycycline 100 mg PO Q12HR #20 tab 07/01/18 Unknown Rx Hyclate TAB] Ibuprofen [Motrin] 800 mg PO Q8HR PRN #30 tablet 07/01/18 Unknown Rx Ondansetron [Zofran Odt] 4 mg PO Q8HR PRN #15 tab.rapdis 07/01/18 Unknown Rx levoFLOXacin [Levaquin] 750 mg PO QDAY #10 tablet 07/01/18 Unknown Rx levoFLOXacin [Levaquin TAB] 500 mg PO QDAY 7 Days #7 tablet 10/30/18 Unknown Rx predniSONE [Deltasone] 3 tab PO QDAY 4 Days #12 tab 10/30/18 Unknown Rx Ibuprofen [Ibuprofen 800] 800 mg PO TID PRN #30 tablet 01/24/19 Unknown Rx Ketorolac [Toradol] 10 mg PO Q6H PRN #12 tablet 03/16/19 Unknown Rx Ondansetron [Zofran Odt] 4 mg PO Q8HR PRN #15 tab.rapdis 03/16/19 Unknown Rx Sulfamethoxazole/Trimethoprim 1 each PO BID #14 tablet 03/16/19 Unknown Rx [Bactrim DS TAB] Tamsulosin HCl [Flomax] 0.4 mg PO DAILY #5 cap.er.24h 03/16/19 Unknown Rx traMADol [Ultram 50 MG tab] 50 mg PO Q6HR PRN #12 tablet 03/16/19 Unknown Rx ALBUTEROL Inhaler (OR & NICU) 2 puff IH QID PRN #1 inhalation 04/25/19 Unknown Rx [ProAir HFA Inhaler] ED Review of Systems ROS: Stated complaint: TRE Other details as noted in HPI Comment: All other systems reviewed and negative Constitutional: denies: chills, fever Eyes: denies: eye pain, vision change ENT: denies: ear pain, throat pain Respiratory: shortness of breath. denies: cough Cardiovascular: chest pain. denies: edema Gastrointestinal: denies: abdominal pain, vomiting Genitourinary: denies: dysuria, discharge Musculoskeletal: denies: back pain, arthralgia Skin: denies: rash, lesions Neurological: denies: headache, weakness Physical Exam - Physical Exam Vital Signs: Vital Signs 04/25/19 08:18 Temperature 97.9 F Pulse Rate 119 H Respiratory 22 Rate Blood Pressure 136/89 O2 Sat by Pulse 99 Oximetry Physical Exam: GENERAL: The patient is well-developed well-nourished. HENT: Normocephalic. Atraumatic. Patient has moist mucous membranes. EYES: Extraocular motions are intact. NECK: Supple. Trachea is midline. CHEST/LUNGS: Clear to auscultation. There is no respiratory distress noted. HEART/CARDIOVASCULAR: Regular. There is mild tachycardia. There is no murmur. ABDOMEN: Abdomen is soft, nontender. Patient has normal bowel sounds. There is no abdominal distention. SKIN: Skin is warm and dry. NEURO: The patient is awake, alert, and oriented. The patient is cooperative. The patient has no focal neurologic deficits. The patient has normal speech. MUSCULOSKELETAL: There is no tenderness or deformity. There is no limitation range of motion. There is no evidence of acute injury. ED Course Vital Signs 04/25/19 08:18 Temperature 97.9 F Pulse Rate 119 H Respiratory 22 Rate Blood Pressure 136/89 O2 Sat by Pulse 99 Oximetry ED Medical Decision Making - Lab Data Result diagrams: 04/25/19 08:40 04/25/19 08:40 - EKG Data -: EKG Interpreted by Me EKG shows normal: sinus rhythm, axis, intervals, QRS complexes, ST-T waves Rate: normal - EKG Data When compared to previous EKG there are: previous EKG unavailable Interpretation: normal EKG - Radiology Data Radiology results: image reviewed interpreted by me: Chest x-ray does not show any acute process. There are no pleural effusions, obvious pneumonia and there is no pneumothorax. - Medical Decision Making This patient presents with some chest tightness and shortness of breath after smoking marijuana, tobacco, and using cocaine last night. EKG is normal without ST elevation AZ, ischemia or dysrhythmia. Patient's labs have been unremarkable including CBC, metabolic panel and a troponin. Chest x-ray did not show any pleural effusions, pneumonia, pneumothorax, focal consolidation, or any other acute process. The patient does not appear acutely intoxicated. He was given a breathing treatment and upon reevaluation he says he is feeling greatly improved and asking for discharge home. He is low on the heart score criteria. He is low on the well's score. We discussed staying away from any further illicit drugs, decreased or cessation of tobacco use. He will return to the emergency department with any return of his chest pain, worsening of symptoms, with any acute distress. Vital signs stable throughout his ED course. - Differential Diagnosis AZ, costochondritis, GERD, substance abuse Critical Care Time: No Critical care attestation.: If time is entered above; I have spent that time in minutes in the direct care of this critically ill patient, excluding procedure time. ED Disposition Clinical Impression: Atypical chest pain, Shortness of breath, Cocaine use, Tobacco use Disposition: DC-01 TO HOME OR SELFCARE Is pt being admited?: No Condition: Stable Instructions: Chest Pain (ED), Cocaine Abuse (ED), Dyspnea (ED) Additional Instructions: Please follow up with a primary care physician in the next few days. Please try and avoid any further illicit drug use and quit smoking. Return to the emergency Department with any worsening of your symptoms or any acute distress. Prescriptions: ALBUTEROL Inhaler (OR & NICU) [ProAir HFA Inhaler] 2 puff IH QID PRN #1 inhalation PRN Reason: Shortness Of Breath Referrals: [facility] [Outside] - 3-5 Days Time of Disposition: 10:05
[2019-04-25 08:51] LABS: Basophils # (Auto) 0.1 K/mm3 (0.0-0.1); Basophils % (Auto) 0.6 % (0.0-1.8); Eosinophils # (Auto) 0.1 K/mm3 (0.0-0.4); Eosinophils % (Auto) 0.8 % (0.0-4.3); Hematocrit 44.7 % (35.5-45.6); Hemoglobin 15.8 gm/dl (11.8-15.2); Lymphocytes # (Auto) 0.9 K/mm3 (1.2-5.4); Lymphocytes % (Auto) 11.3 % (13.4-35.0); Mean Corpuscular HGB Conc 35 % (32-34); Mean Corpuscular Volume 89 fl (84-94); Monocytes # (Auto) 0.6 K/mm3 (0.0-0.8); Platelet Count 229 K/mm3 (140-440); Red Blood Count 5.04 M/mm3 (3.65-5.03); Red Cell Distribution Width 13.8 % (13.2-15.2)
[2019-04-25 09:13] LABS: BUN/Creatinine Ratio 7; Blood Urea Nitrogen 11 mg/dL (9-20); Calcium 8.7 mg/dL (8.4-10.2); Hemolysis Index 19
[2019-04-25] MEDS ORDERED: TORADOL IM ONE (09:26)
[2019-04-25] MEDS ORDERED: IBUPROFEN PO ONE (09:37)
[2019-04-25] MEDS ORDERED: IBUPROFEN ONE (09:38)
--- NOTE | 2019-04-25 10:42 | XRay Report ---
PROCEDURE: XR CHEST ROUTINE 2V TECHNIQUE: PA and lateral chest radiographs were obtained. HISTORY: Chest Pain COMPARISONS: January 24. FINDINGS: Heart: Normal. Mediastinum/Vessels: Normal. Lungs/Pleural space: Normal. Bony thorax: No acute osseous abnormality. IMPRESSION: Stable radiograph with no evidence of acute disease. This document is electronically signed by Solitario Santana MD., April 25 2019 10:40:54 AM ET
== END 2019-04-25 10:13 | disposition home or self-care (01) ==
LOC: ED 08:16
DX: R07.89 Other chest pain (principal); R06.02 Shortness of breath; F14.10 Cocaine abuse, uncomplicated; J45.909 Unspecified asthma, uncomplicated; F12.10 Cannabis abuse, uncomplicated; Z79.899 Other long term (current) drug therapy; Z91.041 Radiographic dye allergy status; Z72.0 Tobacco use
CPT/HCPCS: 36415; 71046; 80048; 84484; 85025; 93005; 93010; 94640

== ENCOUNTER 2019-07-13 06:35 | Emergency (ER) | payer OTHER ==
[2019-07-13 06:41] VITALS: BP 118/83
[2019-07-13] MEDS ORDERED: PROVENTIL IH ONE (08:22)
[2019-07-13] MEDS ORDERED: ATROVENT IH ONE (08:22)
[2019-07-13] MEDS ORDERED: SOLU-Medrol IM ONE (08:22)
--- NOTE | 2019-07-13 08:25 | Emergency Department Report ---
ED Asthma HPI - General Chief Complaint: Dyspnea/Respdistress Stated Complaint: SOB/RUNNY NOSE Time Seen by Provider: 07/13/19 08:19 Source: patient Mode of arrival: Ambulatory Limitations: No Limitations - History of Present Illness Initial Comments: Patient's 28 years old male with history of asthma. Patient presented to the ER complaining of shortness of breath, wheezing productive cough with greenish sputum for the last 3 days. Patient also complaining of fever and chills. Patient denied any nausea or vomiting. MD Complaint: "asthma attack", shortness of breath, wheezing -: days(s) (2) Severity: moderate Context: recent URI Associated Symptoms: productive cough - Related Data Current Asthma Therapy: inhaled bronchodilator Previous Rx's Medication Instructions Recorded Last Taken Type DOXYCYCLINE Hyclate [Vibramycin 100 mg PO Q12HR #30 capsule 02/23/18 Unknown Rx CAP] Sulfamethoxazole/Trimethoprim 1 each PO BID #30 tablet 02/23/18 Unknown Rx [Bactrim Ds Tablet] traMADol [Ultram] 50 mg PO Q6HR PRN #10 tablet 02/23/18 Unknown Rx Doxycycline Hyclate [Doxycycline 100 mg PO Q12HR #20 tab 07/01/18 Unknown Rx Hyclate TAB] Ibuprofen [Motrin] 800 mg PO Q8HR PRN #30 tablet 07/01/18 Unknown Rx Ondansetron [Zofran Odt] 4 mg PO Q8HR PRN #15 tab.rapdis 07/01/18 Unknown Rx levoFLOXacin [Levaquin] 750 mg PO QDAY #10 tablet 07/01/18 Unknown Rx levoFLOXacin [Levaquin TAB] 500 mg PO QDAY 7 Days #7 tablet 10/30/18 Unknown Rx predniSONE [Deltasone] 3 tab PO QDAY 4 Days #12 tab 10/30/18 Unknown Rx Ibuprofen [Ibuprofen 800] 800 mg PO TID PRN #30 tablet 01/24/19 Unknown Rx Ketorolac [Toradol] 10 mg PO Q6H PRN #12 tablet 03/16/19 Unknown Rx Ondansetron [Zofran Odt] 4 mg PO Q8HR PRN #15 tab.rapdis 03/16/19 Unknown Rx Sulfamethoxazole/Trimethoprim 1 each PO BID #14 tablet 03/16/19 Unknown Rx [Bactrim DS TAB] Tamsulosin HCl [Flomax] 0.4 mg PO DAILY #5 cap.er.24h 03/16/19 Unknown Rx traMADol [Ultram 50 MG tab] 50 mg PO Q6HR PRN #12 tablet 03/16/19 Unknown Rx ALBUTEROL Inhaler (OR & NICU) 2 puff IH QID PRN #1 inhalation 04/25/19 Unknown Rx [ProAir HFA Inhaler] Allergies Allergy/AdvReac Type Severity Reaction Status Date / Time Iodine and Iodide Containing Allergy Hives Verified 04/25/19 10:37 Produc ED Review of Systems ROS: Stated complaint: SOB/RUNNY NOSE Other details as noted in HPI Comment: All other systems reviewed and negative Constitutional: chills, fever Respiratory: cough, shortness of breath, wheezing. denies: orthopnea Cardiovascular: denies: chest pain Gastrointestinal: denies: abdominal pain, nausea, vomiting Musculoskeletal: denies: back pain ED Past Medical Hx - Past Medical History Previous Medical History?: Yes Hx Hypertension: No Hx CVA: No Hx Heart Attack/AMI: No Hx Congestive Heart Failure: No Hx Diabetes: No Hx Deep Vein Thrombosis: No Hx Pulmonary Embolism: No Hx GERD: No Hx Liver Disease: Yes (Fatty liver) Hx Renal Disease: No Hx Sickle Cell Disease: No Hx Arthritis: No Hx Headaches / Migraines: No Hx Seizures: No Hx Kidney Stones: No Hx Psychiatric Treatment: No Hx Asthma: Yes Hx COPD: No Hx Tuberculosis: No Hx Dementia: No Hx HIV: Yes - Surgical History Past Surgical History?: No - Social History Smoking Status: Current Every Day Smoker Substance Use Type: Alcohol, Marijuana - Medications Home Medications: Home Medications Medication Instructions Recorded Confirmed Last Taken Type DOXYCYCLINE Hyclate [Vibramycin 100 mg PO Q12HR #30 capsule 02/23/18 Unknown Rx CAP] Sulfamethoxazole/Trimethoprim 1 each PO BID #30 tablet 02/23/18 Unknown Rx [Bactrim Ds Tablet] traMADol [Ultram] 50 mg PO Q6HR PRN #10 tablet 02/23/18 Unknown Rx Doxycycline Hyclate [Doxycycline 100 mg PO Q12HR #20 tab 07/01/18 Unknown Rx Hyclate TAB] Ibuprofen [Motrin] 800 mg PO Q8HR PRN #30 tablet 07/01/18 Unknown Rx Ondansetron [Zofran Odt] 4 mg PO Q8HR PRN #15 tab.rapdis 07/01/18 Unknown Rx levoFLOXacin [Levaquin] 750 mg PO QDAY #10 tablet 07/01/18 Unknown Rx levoFLOXacin [Levaquin TAB] 500 mg PO QDAY 7 Days #7 tablet 10/30/18 Unknown Rx predniSONE [Deltasone] 3 tab PO QDAY 4 Days #12 tab 10/30/18 Unknown Rx Ibuprofen [Ibuprofen 800] 800 mg PO TID PRN #30 tablet 01/24/19 Unknown Rx Ketorolac [Toradol] 10 mg PO Q6H PRN #12 tablet 03/16/19 Unknown Rx Ondansetron [Zofran Odt] 4 mg PO Q8HR PRN #15 tab.rapdis 03/16/19 Unknown Rx Sulfamethoxazole/Trimethoprim 1 each PO BID #14 tablet 03/16/19 Unknown Rx [Bactrim DS TAB] Tamsulosin HCl [Flomax] 0.4 mg PO DAILY #5 cap.er.24h 03/16/19 Unknown Rx traMADol [Ultram 50 MG tab] 50 mg PO Q6HR PRN #12 tablet 03/16/19 Unknown Rx ALBUTEROL Inhaler (OR & NICU) 2 puff IH QID PRN #1 inhalation 04/25/19 Unknown Rx [ProAir HFA Inhaler] ED Physical Exam - General Limitations: No Limitations General appearance: alert, in no apparent distress - Head Head exam: Present: atraumatic, normocephalic, normal inspection - Eye Eye exam: Present: normal appearance, PERRL - ENT ENT exam: Present: normal exam, normal orophraynx, mucous membranes moist - Neck Neck exam: Present: normal inspection, full ROM. Absent: tenderness, meningismus, lymphadenopathy, thyromegaly - Respiratory Respiratory exam: Present: wheezes, rhonchi. Absent: respiratory distress, rales, stridor, chest wall tenderness, accessory muscle use, decreased breath sounds, prolonged expiratory - Cardiovascular Cardiovascular Exam: Present: regular rate, normal heart sounds - GI/Abdominal GI/Abdominal exam: Present: soft, normal bowel sounds. Absent: distended, tenderness, guarding, rebound, rigid - Back Exam Back exam: Absent: CVA tenderness (R), CVA tenderness (L) - Neurological Exam Neurological exam: Present: alert, oriented X3, CN II-XII intact, normal gait, reflexes normal - Skin Skin exam: Present: warm, intact, normal color ED Course Vital Signs 07/13/19 06:39 Temperature 97.7 F Pulse Rate 92 H Respiratory 18 Rate Blood Pressure 118/83 O2 Sat by Pulse 97 Oximetry ED Medical Decision Making - Radiology Data Radiology results: image reviewed interpreted by me: Chest x-ray is unremarkable. - Medical Decision Making Patient's 28 years old male with history of asthma. Patient presented to the ER complaining of shortness of breath, wheezing productive cough with greenish sputum for the last 3 days. Patient also complaining of fever and chills. Patient denied any nausea or vomiting. Patient received albuterol, Atrovent, Solu-Medrol. Patient stated that he is feeling much better. Patient given prednisone, albuterol inhaler and Augmentin and advised to follow-up with his primary care physician in the next 2-3 days and to return to the ER if symptoms are not improved. Critical care attestation.: If time is entered above; I have spent that time in minutes in the direct care of this critically ill patient, excluding procedure time. ED Disposition Clinical Impression: Asthmatic bronchitis, Sinusitis Disposition: DC-01 TO HOME OR SELFCARE Is pt being admited?: No Condition: Stable Instructions: Acute Bronchitis (ED), Acute Bacterial Rhinosinusitis (ED) Referrals: PRIMARY CARE, [Primary Care Provider] - 3-5 Days
--- NOTE | 2019-07-13 09:27 | XRay Report ---
CHEST 1 VIEW INDICATION: chest pain. COMPARISON: 04/25/2019 FINDINGS: Support devices: None. Heart: Within normal limits. Lungs/Pleura: No acute air space or interstitial disease. Additional findings: None. IMPRESSION: 1. No acute findings. Signer Name: Ryan Santoyo MD Signed: 07/13/2019 9:23 AM Workstation Name: [id number]
== END 2019-07-13 09:57 | disposition home or self-care (01) ==
LOC: ED 06:35
DX: J45.909 Unspecified asthma, uncomplicated (principal); F17.200 Nicotine dependence, unspecified, uncomplicated; F12.10 Cannabis abuse, uncomplicated; Z91.041 Radiographic dye allergy status
CPT/HCPCS: 71045; 94640; 96372; 99283; J2930; 94644

== ENCOUNTER 2020-08-28 04:22 | Emergency (ER) | payer SELFPAY ==
[2020-08-28 05:10] VITALS: BP 136/86
[2020-08-28] MEDS ORDERED: FAMOTIDINE 20 MG TAB PO ONE (05:26)
[2020-08-28] MEDS ORDERED: ONDANSETRON 4 MG ODT TAB PO ONE (05:26)
[2020-08-28 05:51] LABS: Basophils # (Auto) 0.1 K/mm3 (0.0-0.1); Basophils % (Auto) 0.6 % (0.0-1.8); Eosinophils # (Auto) 0.4 K/mm3 (0.0-0.4); Hematocrit 49.3 % (35.5-45.6); Hemoglobin 16.6 gm/dl (11.8-15.2); Lymphocytes # (Auto) 2.2 K/mm3 (1.2-5.4); Lymphocytes % (Auto) 20.4 % (13.4-35.0); Mean Corpuscular HGB Conc 34 % (32-34); Mean Corpuscular Volume 92 fl (84-94); Monocytes # (Auto) 1.1 K/mm3 (0.0-0.8); Monocytes % (Auto) 10.3 % (0.0-7.3); Platelet Count 250 K/mm3 (140-440); Red Blood Count 5.38 M/mm3 (3.65-5.03); Red Cell Distribution Width 13.9 % (13.2-15.2)
[2020-08-28 06:03] LABS: BUN/Creatinine Ratio 9; Blood Urea Nitrogen 13 mg/dL (9-20); Calcium 9.4 mg/dL (8.4-10.2); Hemolysis Index 13
[2020-08-28 06:08] LABS: Alanine Aminotransferase 27 units/L (7-56); Albumin 4.5 g/dL (3.9-5); Bilirubin,Direct < 0.2 mg/dL (0-0.2)
[2020-08-28] MEDS ORDERED: SODIUM CHLORIDE 0.9% 1000 ML 1,000 ML IV ONE (06:58)
--- NOTE | 2020-08-28 07:54 | Emergency Department Report ---
Vomiting/Diarrhea - [facility] Chief Complaint: Nausea/Vomiting/Diarrhea Stated Complaint: DEHYDRATED Time Seen by Provider: 08/28/20 06:44 Duration: Today Severity: moderate Nausea/Vomiting Severity: Mild Diarrhea Severity: None Symptoms: Yes Able to Tolerate Fluids, No Watery Diarrhea, No Bloody diarrhea, No Fever, No Recent Unusual Foods, No Recent Untreated Water, No Recent use of Antibiotics, No Family w/ Similar Symptoms, No Contacts w/ Similar Symptoms, No Rash, No Hematuria, No Recent URI Symptoms Other History: The patient was evaluated in the emergency department for symptoms described in the history of present illness. He/she was evaluated in the context of the global COVID-19 pandemic, which necessitated consideration that the patient might be at risk for infection with the virus that causes COVID-19. Institutional protocols and algorithms that pertain to the evaluation of patients at risk for COVID-19 are in a state of rapid change based on information released by regulatory bodies including the CDC and federal and state organizations. These policies and algorithms were followed during the patient's care in the emergency department. Please note that these policies, procedures and recommendations changed on a rapid basis. 29-year-old - [place] male presents to the emergency room stating he is nauseated and feels dehydrated. Patient states that he is smoked some weed and ecstasy last night while at a club and comes in now for fluids. Patient denies any chest pain no shortness of breathing no headache. ED Review of Systems ROS: Stated complaint: DEHYDRATED Other details as noted in HPI ED Past Medical Hx - Past Medical History Previous Medical History?: Yes Hx Hypertension: No Hx CVA: No Hx Heart Attack/AMI: No Hx Congestive Heart Failure: No Hx Diabetes: No Hx Deep Vein Thrombosis: No Hx Pulmonary Embolism: No Hx GERD: No Hx Liver Disease: Yes (Fatty liver) Hx Renal Disease: No Hx Sickle Cell Disease: No Hx Arthritis: No Hx Headaches / Migraines: No Hx Seizures: No Hx Kidney Stones: No Hx Psychiatric Treatment: No Hx Asthma: Yes Hx COPD: No Hx Tuberculosis: No Hx Dementia: No Hx HIV: Yes - Surgical History Past Surgical History?: No - Social History Smoking Status: Never Smoker Substance Use Type: Marijuana - Medications Home Medications: Home Medications Medication Instructions Recorded Confirmed Last Taken Type DOXYCYCLINE Hyclate [Vibramycin 100 mg PO Q12HR #30 capsule 02/23/18 Unknown Rx CAP] Sulfamethoxazole/Trimethoprim 1 each PO BID #30 tablet 02/23/18 Unknown Rx [Bactrim Ds Tablet] traMADoL [Ultram] 50 mg PO Q6HR PRN #10 tablet 02/23/18 Unknown Rx Doxycycline Hyclate [Doxycycline 100 mg PO Q12HR #20 tab 07/01/18 Unknown Rx Hyclate TAB] Ibuprofen [Motrin] 800 mg PO Q8HR PRN #30 tablet 07/01/18 Unknown Rx Ondansetron [Zofran Odt] 4 mg PO Q8HR PRN #15 tab.rapdis 07/01/18 Unknown Rx levoFLOXacin [Levaquin] 750 mg PO QDAY #10 tablet 07/01/18 Unknown Rx levoFLOXacin [Levaquin TAB] 500 mg PO QDAY 7 Days #7 tablet 10/30/18 Unknown Rx predniSONE [Deltasone] 3 tab PO QDAY 4 Days #12 tab 10/30/18 Unknown Rx Ibuprofen [Ibuprofen 800] 800 mg PO TID PRN #30 tablet 01/24/19 Unknown Rx Ketorolac [Toradol] 10 mg PO Q6H PRN #12 tablet 03/16/19 Unknown Rx Ondansetron [Zofran Odt] 4 mg PO Q8HR PRN #15 tab.rapdis 03/16/19 Unknown Rx Sulfamethoxazole/Trimethoprim 1 each PO BID #14 tablet 03/16/19 Unknown Rx [Bactrim DS TAB] Tamsulosin HCl [Flomax] 0.4 mg PO DAILY #5 cap.er.24h 03/16/19 Unknown Rx traMADoL [Ultram 50 MG tab] 50 mg PO Q6HR PRN #12 tablet 03/16/19 Unknown Rx Albuterol Mdi (or & Nicu Only) 2 puff IH QID PRN #1 inhalation 04/25/19 Unknown Rx [ProAir HFA Inhaler] Albuterol Mdi (or & Nicu Only) 2 puff IH QID PRN #1 inhalation 07/13/19 Unknown Rx [ProAir HFA Inhaler] Amoxicillin/Potassium Clav 1 each PO BID #20 tablet 07/13/19 Unknown Rx [Augmentin 875-125 Tablet] Prednisone [predniSONE 10 mg 10 mg PO .TAPER #1 tab.ds.pk 07/13/19 Unknown Rx (6-Day Pack, 21 Tabs)] Ciprofloxacin HCl [Ciprofloxacin 500 mg PO Q12HR #20 tab 05/13/20 Unknown Rx TAB] Diphenoxylate/Atropine [Lomotil] 1 tab PO Q4H PRN #20 tablet 05/13/20 Unknown Rx Hyoscyamine Subl [Levsin Sl 0.125 0.125 mg SL Q4HR PRN #20 tablet 05/13/20 Unknown Rx TAB] metroNIDAZOLE [Flagyl] 500 mg PO Q12HR #20 tab 05/13/20 Unknown Rx Albuterol Sulfate [Proair 90 mcg IH QID PRN #1 aer.pow.ba 08/28/20 Unknown Rx Respiclick] Vomiting Diarrhea Exam - Exam General: Vital signs noted. No distress. Alert and acting appropriately. HEENT: Yes Moist Mucous Membranes, No Pharyngeal Erythema, No Pharyngeal Exudates, No Rhinorrhea, No Conjuctival Injection, No Frontal Tenderness, No Maxillary Tenderness Neck: No Adenopathy, No Rigidity Lungs: Yes Clear Lung Sounds, Yes Good Air Exchange, No Wheezes, No Stridor, No Cough, No Nasal Flaring, No Retractions, No Use of Accessory Muscles Abdomen: Tenderness: No, Peritoneal Signs: No, Distention: No, Hyperactive Bowel sounds: No Skin exam: Rash: No, Edema: No, Normal turgor: Yes Neurologic: Alert and oriented, no deficits. Musculoskeletal: Unremarkable. ED Course Vital Signs 08/28/20 05:06 Temperature 97.9 F Pulse Rate 88 Respiratory 16 Rate Blood Pressure 136/86 O2 Sat by Pulse 94 Oximetry ED Medical Decision Making - Lab Data Result diagrams: 08/28/20 05:24 08/28/20 05:24 - Medical Decision Making 29-year-old -[place] male presents to the emergency room stating he is nauseated and feels dehydrated. Patient states that he is smoked some weed and ecstasy last night while at a club and comes in now for fluids. Patient denies any chest pain no shortness of breathing no headache. Patient was given Zofran ODT and IV fluids. Patient be discharged home with instructions to avoid using street drugs smoking weed increase his fluid intake advance his diet as tolerated. Critical care attestation.: If time is entered above; I have spent that time in minutes in the direct care of this critically ill patient, excluding procedure time. ED Disposition Clinical Impression: Nausea & vomiting Disposition: DC-01 TO HOME OR SELFCARE Is pt being admited?: No Does the pt Need Aspirin: No Condition: Stable Instructions: Acute Nausea and Vomiting (ED) Additional Instructions: Increase your fluid intake advance your diet as tolerated. Avoid using drugs. Prescriptions: Albuterol Sulfate [Proair Respiclick] 90 mcg IH QID PRN #1 aer.[email or web address] PRN Reason: Shortness Of Breath Referrals: PRIMARY CARE, [Primary Care Provider] - 3-5 Days [facility] [Provider Group] - 3-5 Days Forms: Work/School Release Form(ED)
== END 2020-08-28 08:23 | disposition home or self-care (01) ==
LOC: ED 04:22
DX: R11.2 Nausea with vomiting, unspecified (principal); J45.909 Unspecified asthma, uncomplicated; F12.10 Cannabis abuse, uncomplicated; Z79.899 Other long term (current) drug therapy; Z91.041 Radiographic dye allergy status
CPT/HCPCS: 36415; 80048; 80076; 83690; 85025; 96360; 99283; J7030; Q0162

== ENCOUNTER 2021-03-19 08:52 | Emergency (ER) | payer SELFPAY ==
[2021-03-19 09:00] VITALS: BP 132/78
--- NOTE | 2021-03-19 09:32 | Emergency Department Report ---
ED Male HPI - General Chief complaint: Urogenital-Male Stated complaint: SWOLLEN TESTICLES/POSSIBLE STD Time Seen by Provider: 03/19/21 09:05 Source: patient Mode of arrival: Ambulatory Limitations: No Limitations - History of Present Illness Initial comments: This is a 30-year-old male nontoxic, well nourished in appearance, no acute signs of distress presents to the ED with c/o of dysuria and left testicular pain x1 month. Patient denies any penile discharge. Patient denies any penile bleeding, ulcers or lesions. Patient denies any back or flank pain. Patient denies any pelvic or abdominal pain. Patient denies any nausea, vomiting, chest pain, shortness of breathe, fever, chills, headache, back pain, numbness, tingling, stiff neck. Patient denies any other urinary symptoms. MD Complaint: testicle pain, penile discharge -: Gradual, month(s) Location: left testicle Radiation: none Severity: mild Severity scale (0 -10): 3 Quality: burning Consistency: constant Improves with: none Worsens with: urination denies other symptoms, dysuria. denies: discharge, swelling, mass, rash, ur inary retention, blood in urine, fever, nausea/vomiting, incontinence - Related Data Sexually active: Yes Previous Rx's Medication Instructions Recorded Last Taken Type DOXYCYCLINE Hyclate [Vibramycin 100 mg PO Q12HR #30 capsule 02/23/18 Unknown Rx CAP] Sulfamethoxazole/Trimethoprim 1 each PO BID #30 tablet 02/23/18 Unknown Rx [Bactrim Ds Tablet] traMADoL [Ultram] 50 mg PO Q6HR PRN #10 tablet 02/23/18 Unknown Rx Doxycycline Hyclate [Doxycycline 100 mg PO Q12HR #20 tab 07/01/18 Unknown Rx Hyclate TAB] Ibuprofen [Motrin] 800 mg PO Q8HR PRN #30 tablet 07/01/18 Unknown Rx Ondansetron [Zofran Odt] 4 mg PO Q8HR PRN #15 tab.rapdis 07/01/18 Unknown Rx levoFLOXacin [Levaquin] 750 mg PO QDAY #10 tablet 07/01/18 Unknown Rx levoFLOXacin [Levaquin TAB] 500 mg PO QDAY 7 Days #7 tablet 10/30/18 Unknown Rx predniSONE [Deltasone] 3 tab PO QDAY 4 Days #12 tab 10/30/18 Unknown Rx Ibuprofen [Ibuprofen 800] 800 mg PO TID PRN #30 tablet 01/24/19 Unknown Rx Ketorolac [Toradol] 10 mg PO Q6H PRN #12 tablet 03/16/19 Unknown Rx Ondansetron [Zofran Odt] 4 mg PO Q8HR PRN #15 tab.rapdis 03/16/19 Unknown Rx Sulfamethoxazole/Trimethoprim 1 each PO BID #14 tablet 03/16/19 Unknown Rx [Bactrim DS TAB] Tamsulosin HCl [Flomax] 0.4 mg PO DAILY #5 cap.er.24h 03/16/19 Unknown Rx traMADoL [Ultram 50 MG tab] 50 mg PO Q6HR PRN #12 tablet 03/16/19 Unknown Rx Albuterol Mdi (or & Nicu Only) 2 puff IH QID PRN #1 inhalation 04/25/19 Unknown Rx [ProAir HFA Inhaler] Albuterol Mdi (or & Nicu Only) 2 puff IH QID PRN #1 inhalation 07/13/19 Unknown Rx [ProAir HFA Inhaler] Amoxicillin/Potassium Clav 1 each PO BID #20 tablet 07/13/19 Unknown Rx [Augmentin 875-125 Tablet] Prednisone [predniSONE 10 mg 10 mg PO .TAPER #1 tab.ds.pk 07/13/19 Unknown Rx (6-Day Pack, 21 Tabs)] Ciprofloxacin HCl [Ciprofloxacin 500 mg PO Q12HR #20 tab 05/13/20 Unknown Rx TAB] Diphenoxylate/Atropine [Lomotil] 1 tab PO Q4H PRN #20 tablet 05/13/20 Unknown Rx Hyoscyamine Subl [Levsin Sl 0.125 0.125 mg SL Q4HR PRN #20 tablet 05/13/20 Unknown Rx TAB] metroNIDAZOLE [Flagyl] 500 mg PO Q12HR #20 tab 05/13/20 Unknown Rx Albuterol Sulfate [Proair 90 mcg IH QID PRN #1 aer.pow.ba 08/28/20 Unknown Rx Respiclick] Allergies Allergy/AdvReac Type Severity Reaction Status Date / Time Iodine and Iodide Containing Allergy Hives Verified 03/19/21 09:00 Produc shellfish derived AdvReac Hives Verified 03/19/21 09:00 ED Review of Systems ROS: Stated complaint: SWOLLEN TESTICLES/POSSIBLE STD Other details as noted in HPI Comment: All other systems reviewed and negative Constitutional: denies: chills, fever Eyes: denies: eye pain, eye discharge, vision change ENT: denies: ear pain, throat pain Respiratory: denies: cough, shortness of breath, wheezing Cardiovascular: denies: chest pain, palpitations Endocrine: no symptoms reported Gastrointestinal: denies: abdominal pain, nausea, diarrhea Genitourinary: dysuria, testicular pain. denies: urgency, frequency, hematuria, discharge, testicular mass Musculoskeletal: denies: back pain, joint swelling, arthralgia Skin: denies: rash, lesions Neurological: denies: headache, weakness, paresthesias Psychiatric: denies: anxiety, depression Hematological/Lymphatic: denies: easy bleeding, easy bruising ED Past Medical Hx - Past Medical History Hx Hypertension: No Hx CVA: No Hx Heart Attack/AMI: No Hx Congestive Heart Failure: No Hx Diabetes: No Hx Deep Vein Thrombosis: No Hx Pulmonary Embolism: No Hx GERD: No Hx Liver Disease: Yes (Fatty liver) Hx Renal Disease: No Hx Sickle Cell Disease: No Hx Arthritis: No Hx Headaches / Migraines: No Hx Seizures: No Hx Kidney Stones: No Hx Psychiatric Treatment: No Hx Asthma: Yes Hx COPD: No Hx Tuberculosis: No Hx Dementia: No Hx HIV: Yes - Social History Smoking Status: Never Smoker Substance Use Type: None - Medications Home Medications: Home Medications Medication Instructions Recorded Confirmed Last Taken Type DOXYCYCLINE Hyclate [Vibramycin 100 mg PO Q12HR #30 capsule 02/23/18 Unknown Rx CAP] Sulfamethoxazole/Trimethoprim 1 each PO BID #30 tablet 02/23/18 Unknown Rx [Bactrim Ds Tablet] traMADoL [Ultram] 50 mg PO Q6HR PRN #10 tablet 02/23/18 Unknown Rx Doxycycline Hyclate [Doxycycline 100 mg PO Q12HR #20 tab 07/01/18 Unknown Rx Hyclate TAB] Ibuprofen [Motrin] 800 mg PO Q8HR PRN #30 tablet 07/01/18 Unknown Rx Ondansetron [Zofran Odt] 4 mg PO Q8HR PRN #15 tab.rapdis 07/01/18 Unknown Rx levoFLOXacin [Levaquin] 750 mg PO QDAY #10 tablet 07/01/18 Unknown Rx levoFLOXacin [Levaquin TAB] 500 mg PO QDAY 7 Days #7 tablet 10/30/18 Unknown Rx predniSONE [Deltasone] 3 tab PO QDAY 4 Days #12 tab 10/30/18 Unknown Rx Ibuprofen [Ibuprofen 800] 800 mg PO TID PRN #30 tablet 01/24/19 Unknown Rx Ketorolac [Toradol] 10 mg PO Q6H PRN #12 tablet 03/16/19 Unknown Rx Ondansetron [Zofran Odt] 4 mg PO Q8HR PRN #15 tab.rapdis 03/16/19 Unknown Rx Sulfamethoxazole/Trimethoprim 1 each PO BID #14 tablet 03/16/19 Unknown Rx [Bactrim DS TAB] Tamsulosin HCl [Flomax] 0.4 mg PO DAILY #5 cap.er.24h 03/16/19 Unknown Rx traMADoL [Ultram 50 MG tab] 50 mg PO Q6HR PRN #12 tablet 03/16/19 Unknown Rx Albuterol Mdi (or & Nicu Only) 2 puff IH QID PRN #1 inhalation 04/25/19 Unknown Rx [ProAir HFA Inhaler] Albuterol Mdi (or & Nicu Only) 2 puff IH QID PRN #1 inhalation 07/13/19 Unknown Rx [ProAir HFA Inhaler] Amoxicillin/Potassium Clav 1 each PO BID #20 tablet 07/13/19 Unknown Rx [Augmentin 875-125 Tablet] Prednisone [predniSONE 10 mg 10 mg PO .TAPER #1 tab.ds.pk 07/13/19 Unknown Rx (6-Day Pack, 21 Tabs)] Ciprofloxacin HCl [Ciprofloxacin 500 mg PO Q12HR #20 tab 05/13/20 Unknown Rx TAB] Diphenoxylate/Atropine [Lomotil] 1 tab PO Q4H PRN #20 tablet 05/13/20 Unknown Rx Hyoscyamine Subl [Levsin Sl 0.125 0.125 mg SL Q4HR PRN #20 tablet 05/13/20 Unknown Rx TAB] metroNIDAZOLE [Flagyl] 500 mg PO Q12HR #20 tab 05/13/20 Unknown Rx Albuterol Sulfate [Proair 90 mcg IH QID PRN #1 aer.pow.ba 08/28/20 Unknown Rx Respiclick] ED Physical Exam - General Limitations: No Limitations General appearance: alert, in no apparent distress - Head Head exam: Present: atraumatic, normocephalic - Eye Eye exam: Present: normal appearance - Neck Neck exam: Present: normal inspection, full ROM - Respiratory Respiratory exam: Absent: respiratory distress - Cardiovascular Cardiovascular Exam: Present: regular rate - GI/Abdominal GI/Abdominal exam: Present: soft, normal bowel sounds. Absent: distended, tenderness, guarding, rebound, rigid, diminished bowel sounds - exam: Present: testicular tenderness (Left), other (Speech Lang Path Nabil tech present during exam). Absent: urethral discharge, scrotal swelling, vertical testicular lie, circumcision External exam: Present: normal external exam, other (Speech Lang Path Nabil tech present during exam). Absent: erythema, swelling, lesions, lacerations, ecchymosis, bleeding - Extremities Exam Extremities exam: Present: normal inspection, full ROM - Back Exam Back exam: Present: normal inspection, full ROM. Absent: tenderness, CVA tenderness (R), CVA tenderness (L), muscle spasm, paraspinal tenderness, vertebral tenderness, rash noted - Neurological Exam Neurological exam: Present: alert, oriented X3, normal gait - Psychiatric Psychiatric exam: Present: normal affect, normal mood - Skin Skin exam: Present: warm, dry, intact, normal color. Absent: rash ED Course Vital Signs 03/19/21 08:57 Temperature 97.6 F Pulse Rate 85 Respiratory 18 Rate Blood Pressure 132/78 O2 Sat by Pulse 100 Oximetry - Reevaluation(s) Reevaluation #1: 03/19/21 10:01 Patient is speaking in full sentences with no signs of distress noted. ED Medical Decision Making - Medical Decision Making 30-year-old male that presents with dysuria and testicular pain. Patient is stable and was examined by me. UA and ultrasound has been ordered but patient stated he has to go to work. Patient was educated and instructed of my concerns if not examined and or treated but the patient still refused. Patient sign AGAINST MEDICAL ADVICE. Critical care attestation.: If time is entered above; I have spent that time in minutes in the direct care of this critically ill patient, excluding procedure time. ED Disposition Clinical Impression: Dysuria, Left testicular pain Disposition: DC-07 LEFT AGAINST MED ADVICE Is pt being admited?: No Condition: Undetermined Additional Instructions: Follow-up with a primary care doctor as soon as possible or if symptoms worsen and continue return to emergency room as soon as possible. You are leaving AGAINST MEDICAL ADVICE. As instructed and educated to you during your ED stay that this is a serious medical condition and if not further evaluated and or treated this could cause serious complications and or . Referrals: PRIMARY CARE, [Primary Care Provider] - PIETRO WESTFALL MD [Staff Physician] - VICK Forms: AMA Form Time of Disposition: 09:31
[2021-03-19 09:56] LABS: Bilirubin,Urine NEG (Negative); Blood,Urine NEG (Negative); Color,Urine Yellow (Yellow); Protein,Urine <15 mg/dL mg/dL (Negative); WBC,Urine < 1.0 /HPF (0.0-6.0)
== END 2021-03-19 09:32 | disposition left against medical advice (07) ==
LOC: ED 08:52
DX: N50.812 Left testicular pain (principal); R30.0 Dysuria; J45.909 Unspecified asthma, uncomplicated; Z91.013 Allergy to seafood; Z91.041 Radiographic dye allergy status; Z79.899 Other long term (current) drug therapy; Z21 Asymptomatic human immunodeficiency virus [HIV] infection status
CPT/HCPCS: 81001

== ENCOUNTER 2022-06-12 20:00 | Emergency (ER) | payer SELFPAY | END 2022-06-12 20:15 | disposition left against medical advice (07) | LOC: ED 20:00 | DX: R51.9 Headache, unspecified (principal); M54.2 Cervicalgia; Z53.21 Procedure and treatment not carried out due to patient leaving prior to being seen by health care provider ==